=== PATIENT | female | born 1940 | race Caucasian/White ===

== ENCOUNTER → 2016-09-06 | Outpatient (CLI) | payer MEDICARE, BC ==
--- NOTE | 2016-09-06 10:51 | FL ---
EXAMINATION TYPE: FL barium swallow DATE OF EXAM: 09/06/2016 10:40 AM CLINICAL HISTORY: Dysphasia, solid foods getting stuck in proximal esophagus for 4 months. On Protoni x for Last 2 weeks without change in symptoms. TECHNIQUE: A double contrast esophagram is performed utilizing air and barium. A total of 30 second s of fluoroscopic time was utilized during procedure. COMPARISON: None FINDINGS: The esophagus shows satisfactory motility and emptying into the stomach when upright. There is some dysmotility when patient is supine. No evidence of hiatal hernia or stricture noted. No susp icious intraluminal mass is identified. No significant gastroesophageal reflux was seen during real t sophy performance of this study. IMPRESSION: Some mild dysmotility when supine otherwise unremarkable study.
== END ==
LOC: RADFLWHC 09:59
PROVIDERS: ATTEND Family Medicine
DX: K22.4 Dyskinesia of esophagus (principal); Z88.0 Allergy status to penicillin; Z88.8 Allergy status to other drugs, medicaments and biological substances
CPT/HCPCS: 74220

== ENCOUNTER → 2018-08-17 | Outpatient (CLI) | payer MEDICARE, BC ==
--- NOTE | 2018-08-17 17:12 | MR ---
EXAMINATION TYPE: MR cervical spine wo con DATE OF EXAM: 08/17/2018 COMPARISON: None HISTORY: Cervical Myelopathy, Neck and Rubens Shoulder Pain TECHNIQUE: Multiplanar, multisequence images of the cervical spine were acquired. C2-C3: No evidence for degenerative disc disease. No disc bulge/herniation or protrusion. No Canal stenosis. Foramina are patent bilaterally. C3-C4: No evidence for degenerative disc disease. No disc bulge/herniation or protrusion. No Canal stenosis. Foramina are patent bilaterally. C4-C5: Uncovertebral vertebral joint hypertrophy contributes to cause mild foraminal encroachment on the right. No significant central stenosis or evident disc herniation. C5-C6: Bilateral foraminal encroachment is present due to uncovertebral joint hypertrophy facet arthr opathy change. No significant central stenosis or evident disc herniation. C6-C7: No central spinal stenosis, no disc herniation or significant foraminal encroachment. C7-T1: No evidence for degenerative disc disease. No disc bulge/herniation or protrusion. No Canal stenosis. Foramina are patent bilaterally. Cervical segments are intact. There is normal alignment. Cervical spinal cord is of normal signal. Craniovertebral junction relationships are within normal limits. Cervical vertebral bodies show pre served height, there is mild spondylosis and endplate discogenic marrow signal change, loss of disc h eight signal greatest at C4-5 and C5-6. Multilevel facet arthropathy. IMPRESSION: Mild degenerative disc disease, no sizable disc herniation or significant central stenosis. Mild fora laila encroachment.
== END | disposition home or self-care (01) ==
LOC: RADMRIMAIN 13:39
PROVIDERS: ATTEND Family Medicine
DX: M50.321 Other cervical disc degeneration at C4-C5 level (principal)
CPT/HCPCS: 72141

== ENCOUNTER 2019-08-30 07:40 | Day surgery (SDC) | payer MEDICARE ==
[2019-08-28 17:24] VITALS: BMI 32.3
--- NOTE | 2019-08-29 13:28 | HP ---
HISTORY AND PHYSICAL Surgery is scheduled for 08/30/2019. Pat Fabian is a 79-year-old patient who is seen with progressive right shoulder pain. We discussed options for treatment. She elected to proceed with arthroscopy. Consent was obtained. PAST MEDICAL HISTORY: Her past medical history is hypertension, hyperlipidemia, hypothyroidism. PAST SURGICAL HISTORY: Cholecystectomy. DAILY MEDICATIONS: 1. Crestor. 2. Corgard. 3. Dyazide. 4. Prozac. 5. Synthroid. 6. Zetia. ALLERGIES: PENICILLIN. SOCIAL HISTORY: She denies current tobacco use. PHYSICAL EXAMINATION: Physical evaluation of the right shoulder: Flexion is 90 degrees, abduction is 70 degrees, external rotation is 40 degrees with pain and weakness. Tenderness along the anterior lateral acromion and rotator cuff insertion site. Impingement is positive 90. Drop-arm sign positive. Distal neurovascular exam is intact. Radiographs of the right shoulder revealed a type 2 anterior acromion, severe acromioclavicular joint osteoarthritis and cystic changes of the greater tuberosity. Right shoulder MRI revealed rotator cuff tendon tear, labral tear, acromioclavicular joint osteoarthritis and biceps tendinitis. IMPRESSION: 1. Right shoulder impingement with rotator cuff tear. 2. Right shoulder acromioclavicular joint osteoarthritis. 3. Right shoulder bicipital tendinitis. 4. Hyperlipidemia. 5. Hypertension. PLAN: Right shoulder arthroscopy with subacromial decompression, arthroscopic rotator cuff repair, Winifred procedure, biceps tenotomy and debridement. MMODL / IJN: [id number] /
[~2019-08-30 07:40] MED LIST: DEXAMETHASONE SOD PHOSPHATE 10 MG/ML 1 ML VIAL IV ONE; HYDROmorphone 0.5 MG/0.5 ML SYRINGE IVP PRN; LIDOCAINE 1% (10MG/ML) FOR IV START INTRADERMA PRN; MIDAZOLAM 2 MG/2 ML VIAL IV PRN; ONDANSETRON 4 MG/2 ML VIAL IVP ONE; fentaNYL (PF) 50 MCG/ML 2 ML AMP IVP PRN
[2019-08-30] MEDS: LACTATED RINGERS 1,000 ML IV SCH ×2 (08:19→09:31)
[2019-08-30] MEDS ORDERED: MIDAZOLAM 2 MG/2 ML VIAL IVP ONE (09:02)
[2019-08-30] MEDS ORDERED: fentaNYL (PF) 50 MCG/ML 2 ML AMP IVP ONE (09:03)
[2019-08-30] MEDS ORDERED: SUCCINYLCHOLINE CHLORIDE 100 MG/5 ML SYR IV ONE (09:27)
[2019-08-30] MEDS ORDERED: fentaNYL (PF) 50 MCG/ML 2 ML AMP ONE (09:27)
[2019-08-30] MEDS ORDERED: PROPOFOL 10 MG/ML 20 ML VIAL IV ONE (09:27)
[2019-08-30] MEDS ORDERED: LIDOCAINE 1% INJ 10MG/ML (20 ML MDV) ONE (09:27)
[2019-08-30] MEDS ORDERED: ROPIVACAINE 5 MG/ML 30 ML VIAL ONE (09:27)
[2019-08-30] MEDS ORDERED: SODIUM CHLORIDE 0.9% 100 ML with CLINDAMYCIN 600 MG IV ONE ×2 (09:31)
[2019-08-30] MEDS ORDERED: LACTATED RINGERS 1,000 ML IV ONE (10:55)
[2019-08-30 11:04] VITALS: TEMP 97
--- NOTE | 2019-08-30 11:09 | P.OP ---
Date of Procedure: 08/30/19 Preoperative Diagnosis: Right shoulder impingement Postoperative Diagnosis: 1. Right shoulder rotator cuff tear 2. Right shoulder impingement 3. Right shoulder acromioclavicular joint osteoarthritis 4. Right shoulder partial long head biceps tendon tear 5. Right shoulder superficial labral tear Procedure(s) Performed: 1. Right shoulder arthroscopic rotator cuff repair 2. Right shoulder arthroscopic subacromial decompression 3. Right shoulder arthroscopic Winifred procedure 4. Right shoulder arthroscopic biceps tenotomy 5. Right shoulder arthroscopic debridement labral tear Implants: 15.5 Arthrex swivel lock anchor Anesthesia: GETA, regional (Interscalene block) Surgeon: Leon Seay Front End Web Designer #1: Nnamdi Nagy Estimated Blood Loss (ml): 10 Pathology: none sent Condition: stable Disposition: PACU Indications for Procedure: 79-year-old patient seen with progressive right shoulder pain. After treatment options were discussed, she elected to proceed with arthroscopy. Operative Findings: See description of procedure Description of Procedure: Patient underwent an interscalene block by department of anesthesia. The patient was then taken to the operative suite. The patient underwent a general anesthetic by the department of anesthesia. The patient was placed into a lateral position and secured. There was appropriate padding of the bony prominence. Right shoulder was then prepped and draped in normal sterile orthopedic fashion. We placed the extremity in 10 pounds of longitudinal traction. A posterior incision was now made for a posterior working portal site. The trocar and cannula were inserted into the glenohumeral joint. Arthroscopy was initiated. Spinal needle was now inserted anteriorly, to ascertain the anterior working portal site. An incision was now made in that area, a trocar was inserted followed by a probe. There was superficial tearing along the anterior superior labrum. There were grade 3 chondromalacia changes diffusely about the glenohumeral joint. There was some partial tearing and hyperemia long head biceps tendon. I performed an arthroscopic biceps tenotomy. I debrided the superficial labral tears getting down to stable labral tissue. Residual labrum was found to be stable. Instruments now removed from glenohumeral joint. Utilizing the posterior working portal site, the trocar and cannula were inserted into the subacromial space. Arthroscopy initiated. I made an incision 2 fingerbreadths lateral to the acromion. I introduced my trocar followed by my ArthroCare ablator. I now began ablating thick subacromial bursal tissue, which exposed the undersurface of the anterior acromion. There was diminished subacromial space. There was a very prominent anterior acromion. A motorized bur was introduced and a subacromial decompression was performed. I also excised some osteophytes off the inferior aspect of the distal clavicle. The AC joint was visualized and noted to be fairly arthritic. The motorized bur was introduced in the anterior portal site and a Winifred procedure was performed without difficulty, decompressing the AC joint nicely. I turned my attention to the rotator cuff. There was a 11.5 cm rotator cuff tear. I debrided the margins getting down to stable tendon tissue. I abraded the footprint with a motorized bur. With the assistance of vernon TURNER and now passed her to mattress sutures through good bites of rotator cuff tendon. I now punched a hole in the area of the footprint for insertion of an anchor. I now passed all 4 limbs of suture through a Arthrex 5.5 swivel lock anchor. The eyelet was now introduced into the prepunched hole. Zachery TURNER tensioned all the sutures and applied the anchor was good fixation noted. All residual suture limbs were now clipped. We had good compression of the tendon along the entire footprint. I injected 1 mL Renyte intra-articular. Instruments now removed from the portal sites. All portal sites were approximated with nylon suture. Sterile dressings were applied followed by a shoulder sling. Nnamdi TURNER assisted in this complex case. The patient was awakened, transferred to a bed, and taken to recovery in stable condition.
[2019-08-30] MEDS ORDERED: METOPROLOL TARTRATE 5 MG/5 ML VIAL IVP ONE (12:13)
--- NOTE | 2019-08-30 12:23 | P.ANPRN ---
Procedure Note - Anesthesia - Nerve Block Performed Left Axillary Single Time Out Performed: Yes Date of Procedure: 08/30/19 Procedure Start Time: 09:01 Procedure Stop Time: 09:10 Location of Patient: PreOp Indication: Acute Post-Operative Pain, Requested by Surgeon Specifically requested for management of pain by DrJhonny: Leon Seay Sedation Type: Sedate with meaningful contact maintained Preparation: Sterile Prep Position: Supine Catheter: None Needle Types: Pajunk Needle Gauge: 21 Ultrasound used to visualize needle placement: Yes Ultrasound used to observe medication spread: Yes Injectate: 0.5% Ropivacaine (see comment for volume) (20 cc) Blood Aspirated: No Pain Paresthesia on Injection Noted: No Resistance on Injection: Normal Image Stored and Saved: Yes Events: Uneventful and Well Tolerated
[2019-08-30 12:33] VITALS: BP 167/79; PULSE 70; RESP 18
== END 2019-08-30 12:48 | disposition home health service (06) ==
LOC: OR 07:40
PROVIDERS: ATTEND Orthopaedic Surgery
DX: M75.101 Unspecified rotator cuff tear or rupture of right shoulder, not specified as traumatic (principal); M19.011 Primary osteoarthritis, right shoulder; M94.211 Chondromalacia, right shoulder; M75.21 Bicipital tendinitis, right shoulder; S43.431A Superior glenoid labrum lesion of right shoulder, initial encounter; I10 Essential (primary) hypertension; E78.5 Hyperlipidemia, unspecified; E03.9 Hypothyroidism, unspecified; F39 Unspecified mood [affective] disorder; Z88.0 Allergy status to penicillin; Z87.891 Personal history of nicotine dependence; Z79.890 Hormone replacement therapy; Z79.899 Other long term (current) drug therapy; Z90.49 Acquired absence of other specified parts of digestive tract
CPT/HCPCS: 64415; 76942; 29824; 29826; 29827; C1713; Q4212; J2250; J1100; J2405; J2001; J3010; J2795; J0330; J2704

== ENCOUNTER → 2021-02-02 | Outpatient (CLI) | payer MEDICARE ==
--- NOTE | 2021-02-03 04:53 | MR ---
EXAMINATION TYPE: MR lumbar spine wo con DATE OF EXAM: 02/02/2021 COMPARISON: 04/04/2012 HISTORY: Sever low center back pain for 1 year. Multiplanar multiecho imaging of the lumbar spine without contrast. Fairly normal alignment. There is a few millimeter anterior subluxation of L2 in relation L3. I see n o spondylolysis. There is degenerative disc space narrowing throughout the lumbar spine and more annette re at L3-4 and L4-5. There is some mild loss of height of L5 vertebral body. The sacroiliac joints are intact. There is multilevel lumbar hypertrophic facet arthropathy. There is no significant spinal stenosis. There is no lumbar paraspinal mass. IMPRESSION: Multilevel spondylotic changes. There is slight loss of height of L5 without change. No focal bone de struction. No significant spinal stenosis. Lumbar spine not significantly different than old exam. Stable degene rative first-degree L2-3 spondylolisthesis. Mild lateral recess stenosis at L2-3 due to the facet art hropathy and subluxation.
== END | disposition home or self-care (01) ==
LOC: RADMRIMAIN 16:56
PROVIDERS: ATTEND Family Medicine
DX: M48.062 Spinal stenosis, lumbar region with neurogenic claudication (principal); M47.896 Other spondylosis, lumbar region; M43.16 Spondylolisthesis, lumbar region; M46.96 Unspecified inflammatory spondylopathy, lumbar region
CPT/HCPCS: 72148

== ENCOUNTER → 2021-07-20 | Outpatient (CLI) | payer MEDICARE ==
[2021-07-20 13:47] VITALS: BP 140/61; PULSE 80; RESP 18; TEMP 97.9
--- NOTE | 2021-07-20 14:02 | P.CON ---
Consult Note - . Consult date: 07/20/21 Assessment/Plan:: HISTORY OF PRESENT ILLNESS: 81 year old female with at side, as a referral from Dr Tyler presents today for lumbar pain s/p lumbar degenerative disc disease, spondylolisthesis and facet arthropathy for a LESI. States she underwent a LESI, level unknown, in May 2021 but her physician moved to a far away county and she would like to continue the treatment plan with a local clinic. She experienced 70% relief with the procedure. Her lower back pain feels dull and achy left and right of midline and radiates as a sharp shooting character down both extremities. It is 3 out of 10 in intensity but escalates at times to 8 out of 10. It is provoked with standing and walking. It is alleviated with Tylenol and Lyrica, topical Biofreeze gel, injections, ice or heat stretching, repositioning and rest. PMH: HTN, Hyperlipidemia, Hypothryoidism, Depression PSH: Right shoulder impingement injection SH: . Denies tobacco or ETOH abuse. FH: Non contributory All: PCN, Sulfa Meds: See list REVIEW OF ORGAN SYSTEMS: CONSTITUTIONAL: No fevers or chills. No recent weight loss. HEENT: No visual acuity loss, eye pain, difficulties with hearing. No nosebleeds. No difficulty swallowing. RESPIRATORY: Denies any troubles with breathing or dyspnea on exertion. CARDIOVASCULAR: Denies any chest pain, palpitations, or recent heart attacks. GASTROINTESTINAL: Denies fatty food intolerance. Has change in bowel habits and gas bloat. GENITOURINARY: Denies any blood in urine. Has increased urinary frequency. NEUROLOGICAL: + numbness and tingling along the distal extremities. No seizure disorders or headaches. MUSCULOSKELETAL: + back pain SKIN: No skin cancer. No rash. PSYCHIATRIC: Denies current depression or suicidal thoughts. ENDOCRINE: Denies current thyroid disorders. Denies any blood sugar glucose intolerance. HEME/LYMPHATIC: Denies any lumps and bumps around the neck. History of deep venous thrombosis. ALLERGY/IMMUNOLOGY: No immunoglobulin therapy. No immune deficiencies. BREAST: Denies current breast lumps, pain or nipple discharge. Physical Examinations : Constitutional : Cooperative , not in acute distress . HEENT: Neck supple. No Lymphadenopathy. Normal thyroid size . Eyes no ptosis , no icterus, no photo phobia . Hearing intact. Normal oropharynx. No Thrush. Respiratory : Chest clear to auscultations bilaterally. No wheezing. No rhonchi. Cardiovascular : Regular rate and rhythm , S1 / S2. No S3 . No S4. Gastrointestinal : Abdomen soft. No tenderness. Bowel sounds x 4. No organomegaly . Genitourinary : Deferred. Neurologic : Cranial nerve II to XII intact. No focal neurological deficits. Psychiatric : alert & oriented x 3. Matching mood & appropriate affect. Judgment & insight intact. Lymphatic No Lymphadenopathy. Musculoskeletal : Cervical Spine Motor strength in the deltoid and biceps: Normal right side. Normal Left side Motor strength biceps and the wrist extensors: Normal right side . Normal left side Motor strength in the triceps muscle: Normal right side. Normal left side Deep tendon reflexes: Normal at the biceps. Normal at Brachioradialis. Normal at triceps Cervical facet loading test: positive bilaterally Spurling test: positive bilaterally Neck distraction test: positive bilaterally Hollis sign: positive bilaterally Lumbar spine Motor strength lower extremities ,thigh and legs 5/5 Right side , 5/5 Left side Deep tendon reflexes : Normal Knee Jerk. Normal Ankle Jerk Vertebral body tenderness to palpation over L3 & L4 Lumbar facet Loading Test: positive Right / positive Left over L3-L4 Range of motion of the lumbar spine Flexion 45 degrees, extension 10 degrees Straight Leg Raise test: Left/ Right positive at degree Srinivasan test: positive right / positive left. Severe tenderness over the Sacroiliac joint on the Right / Left sides Gaenslen test: positive bilaterally Seated flexion test: positive bilaterally. IMAGING MRI Lumbar Spine 02/03/21 : L2 anterior subluxation, spondylolisthesis, L3-L4 & L4-L5 degenerative disc disease, multilevel spondylosis and multilevel facet arthropathy Assessment/ Plan : Recommendation of LESI L3 to L4 Risk, benefits of the procedure discussed and patient verbalized understanding Denies aspirin and anticoagulant use May need an additional LESI to reach sufficient pain relief I have spent greater than 50 minutes on patient care today. Dr Gatica was available by phone for the evaluation of this patient. The time was used to review the medical records including relevant urine studies and Prescription history (MAPs), review of the available imaging, evaluation and examination of the patient, coordination of care with the medical staff and if applicable referring physicians, as well as creation of the medical record PQRS Measure Charge Sheet Mode of Arrival: Ambulatory - Pain Location Lower Back Non-Pharmacological Interventions: Chiropractic Treatment, Inactivity Pharmacological Interventions: Epidural, Medication, PRN Medication, Topical Medication PQRS Narrative: Smoking Status Former smoker Blood Pressure 140/61 Pain Intensity [Lower Back] 3 Pain Intensity [Bilateral Leg] 6 Scale Used Numeric (1 - 10) Hx Alcohol Use (MH) Yes Home Medications: Ambulatory Orders Ezetimibe [Zetia] 10 mg PO MOTUWETHFR 08/28/19 FLUoxetine HCL [PROzac] 20 mg PO DAILY 08/28/19 LORazepam [Ativan] 1 mg PO BID PRN 08/28/19 Levothyroxine Sodium [Synthroid] 75 mcg PO DAILY 08/28/19 Nadolol [Corgard] 40 mg PO DAILY 08/28/19 Rosuvastatin [Crestor] 10 mg PO MOTUWETHFR 08/28/19 Cyanocobalamin (Vitamin B-12) [Vitamin B12] 5,000 mcg PO DAILY 07/14/21 Multivitamins, Thera [Multivitamin (formulary)] 1 tab PO DAILY 07/14/21
== END | disposition home or self-care (01) ==
LOC: PNWHC3 12:51
PROVIDERS: ATTEND Physician Assistant Medical
DX: M51.36 Other intervertebral disc degeneration, lumbar region (principal); M54.16 Radiculopathy, lumbar region
CPT/HCPCS: 99211

== ENCOUNTER 2021-08-11 07:20 | Day surgery (SDC) | payer MEDICARE ==
[2021-08-10 12:21] VITALS: BMI 35.5
[~2021-08-11 07:20] MED LIST changes: -DEXAMETHASONE SOD PHOSPHATE 10 MG/ML 1 ML VIAL IV ONE; -HYDROmorphone 0.5 MG/0.5 ML SYRINGE IVP PRN; +LACTATED RINGERS 1,000 ML IV SCH; -LIDOCAINE 1% (10MG/ML) FOR IV START INTRADERMA PRN; -MIDAZOLAM 2 MG/2 ML VIAL IV PRN; -ONDANSETRON 4 MG/2 ML VIAL IVP ONE; -fentaNYL (PF) 50 MCG/ML 2 ML AMP IVP PRN
[2021-08-11 07:54] VITALS: TEMP 98.3
[2021-08-11] MEDS ORDERED: IOPAMIDOL M200 10 ML VIAL ONE (08:10)
[2021-08-11] MEDS ORDERED: fentaNYL (PF) 50 MCG/ML 2 ML AMP ONE (08:10)
[2021-08-11] MEDS ORDERED: MIDAZOLAM 2 MG/2 ML VIAL ONE (08:10)
[2021-08-11] MEDS ORDERED: methylPREDNISolone ACETATE 40 MG/ML 1 ML VIAL ONE (08:10)
--- NOTE | 2021-08-11 08:21 | P.PCN ---
Date of Procedure: 08/11/21 Procedure(s) Performed: PREOPERATIVE DIAGNOSIS: 1- Lumbar Degenerative Disc Diseases 2-Lumbar spondylosis with Facet arthropathy without myelopathy POSTOPERATIVE DIAGNOSIS: Same as preop diagnosis. PROCEDURE 1. Lumbar epidural steroid injection under fluoroscopic guidance at the L3-4 level. (Fluoroscopy imaging was available in radiology department) 2. Lumbar epidurogram. ANESTHESIA: Local with 1% lidocaine 3 ml and , moderate sedation with intravenous Versed 1 mg ,and fentanyle 50 Mcg EBL: Minimal PROCEDURE INDICATION: The patient with low back pain and radiculitis symptoms unresponsive to conservative treatment. Fluoroscopy was used to optimize visualization of the needle placement and to maximize safety. PROCEDURE DESCRIPTION / TECHNIQUE: The patient was seen and identified in the preoperative area. Risks, benefits, complications including but not limited to infections ,bleeding ,allergic reaction to the medications ,nerve damage and not complete pain releife , and alternatives were discussed with the patient. The patient agreed to proceed with the procedure and signed the consent. IV was started, and vital signs were stable. Patient was taken to the OR and time out was completed. The patient was placed in the prone position on procedure table and a pillow was placed under the abdomen to reduce lumbar lordosis. The lumbosacral area was prepped and draped in the usual sterile fashion.ere closely monitored during the procedure. Cons cious sedation was used during the procedure to decrease patients anxiety. Vital signs was monitered during the entire procedure. Using anterior-posterior fluoroscopy, the L3-4 interlaminar space was identified and the skin over this site was marked and then infiltrated with 1% lidocaine subcutaneously. Subsequently, a 20-gauge Tuohy epidural needle was inserted and advanced toward the epidural space using the ``Loss of resistance technique and guided by AP and lateral fluoroscopy. The correct needle position in the epidural space was verified with the injection of 2 mL of the water soluble contrast dye Isovue 200 contrast and observing an excellent epidurogram with the epidural spread of the dye, after negative aspiration for blood and CSF and in the absence of paresthesias. Again after negative aspiration, a 6 ml mixture containing 40 mg of Depo-medrol , and 2 ml of preservative free Normal Saline, and 2 ml of preservative free lidocaine 1% solution was injected and a washout o f epidurogram was seen. Needle was withdrawn intact, skin was cleansed, and bandages were applied. COMPLICATIONS: None DISPOSITION / PLANS: The patient was placed in a supine position and transferred to the recovery area in a stable condition for observation. There was no evidence of lower extremity motor or sensory deficit after the procedure. Patient was discharged from the recovery room after meeting discharge criteria. Home discharge instructions were given to the patient by the staff. The patient was reexamined prior to discharge. The patient will schedule a follow up in the clinic in 2-4 weeks.
[2021-08-11] MEDS ORDERED: IV FLUID CONTINUATION 1,000 ML IV ONE (08:25)
[2021-08-11 08:29] VITALS: RESP 16
[2021-08-11 08:41] VITALS: BP 120/59; PULSE 63
--- NOTE | 2021-08-11 08:47 | FL ---
EXAMINATION TYPE: FL guided pain mgmt statistic DATE OF EXAM: 08/11/2021 CLINICAL HISTORY: LESI TECHNIQUE: Fluoroscopy. COMPARISON: MRI dated 02/02/2021 FINDINGS: Fluoroscopic guidance was provided during procedure performed by Dr. Tobar. A total of 7 seconds of fluoroscopic time was utilized during the procedure and 1 spot images was acquired. IMPRESSION: As Above.
== END 2021-08-11 09:04 | disposition home or self-care (01) ==
LOC: ORPAIN 07:20
PROVIDERS: ATTEND Specialist
DX: M47.26 Other spondylosis with radiculopathy, lumbar region (principal); M51.16 Intervertebral disc disorders with radiculopathy, lumbar region; Z88.0 Allergy status to penicillin; Z88.2 Allergy status to sulfonamides
CPT/HCPCS: 62323; J2250; J1030; J3010; Q9966

== ENCOUNTER → 2021-08-27 | Outpatient (CLI) | payer MEDICARE ==
--- NOTE | 2021-08-27 12:19 | P.PN ---
Subjective Progress Note Date: 08/27/21 Principal diagnosis: A 81 yr old female with at side with a history of severe and chronic low back pain secondary to lumbar degenerative disc diseases and lumbar spondylosis with facet arthropathy presents today for evaluation status post LESI L3-L4 #1. Patient states he expressively 5% pain relief for 4 days but the pain relief quickly reduced to 25% for one week and now she is at 0% pain relief. Pain is currently at 4 out of 10 in intensity, constant, achy throughout the lumbar spine with occasional sharp pain radiating down bilateral lower extremities. Pain is provoked by sitting for periods of 1 hour or more. Pain is alleviated with medications, topical Biofreeze gel, heat, injections, physical therapy 6 years ago which was ineffective, use of a body pillow, sitting in a reclined position and rest. Interventional pain procedures completed include LESI L3-L4 #1 Patient is currently on Tylenol OTC Patient denies any side effects of the medication(s), denies excessive drowsiness or sleepiness, denies suicidal ideation and reports that the current pain medication is helping to control the pain and improve activities of daily living. Patient denies any motor or sensory deficits. Patient denies any fever or night sweats, denies any change in the bowel movements or urination. Physical Examination: -Constitutional: Cooperative. Not in acute distress . -HEENT: Neck is supple. No lymphadenopathy. No thyromegaly. Normal thyroid size. Eyes: No ptosis , no icterus, no photophobia. ENT: No auditory deficits. Normal oropharynx. No Thrush. - Respiratory: Chest clear to auscultations bilaterally. No wheezing. No rhonchi. - Cardiovascular: Regular rate and rhythm. S1 / S2 , no S3 , no S4. - Gastrointestinal: Abdomen soft no tenderness. Bowel sounds positive in all four quadrants. No organomegaly. - Genitourinary: Deferred. - Neurologic: Cranial nerve II to XII intact. No focal neurological deficits. - Psychatric: Alert & oriented x 3. Matching mood & appropriate affect. Judgment and insight intact. - Lymphatic: No Lymphadenopathy. - Musculoskeletal: Cervical spine: Muscle bulk/ tone/ strength in the bilateral upper extremities normal. Facet loading test cervical area positive. Lumbar spine: Motor bulk/ tone/ strength lower extremities , thigh and legs : 5/5 Deep tendon reflexes : Normal Knee Jerk. Normal Ankle Jerk . Vertebral body tenderness to palpation over L2, L3, L4 Lumbar Facet Loading Test positive Straight Leg Raise: positive at 30 degrees right side/ left side Gaenslen's Test positive Sacral spine : Severe tenderness over the Sacroiliac joint: right side / left side Range of motion: Flexion of the lumbar spine <60 degrees Range of motion: Extension of the lumbar spine <20 degrees Gaenslen's Test positive Srinivasan test: positive right side / left side Assessment and plan: Chronic low back pain secondary to lumbar degenerative disc disease , lumbar spondylosis with facet arthropathy without myelopathy Recommendation of LESI L2-L3. May need a series of injections, up to 3 within a six-month period, to obtain optimal pain relief. Risks, benefits of procedure discussed and patient verbalized understanding. Denies anticoagulant use. Denies medical history of diabetes mellitus. All patient questions answered MAPS reviewed and it was appropriate. I have spent 31 minutes on patient care today. Dr Gatica was available by phone for the evaluation of this patient. The time was used to review the [facility] records including relevant urine studies and Prescription history (MAPs), review of the available imaging, evaluation and examination of the patient, coordination of care with the medical staff and if applicable referring physicians, as well as creation of the medical record PQRS Measure Charge Sheet PQRS Narrative: Smoking Status Former smoker Hx Alcohol Use (MH) Yes Home Medications: Ambulatory Orders Ezetimibe [Zetia] 10 mg PO DAILY 08/28/19 FLUoxetine HCL [PROzac] 20 mg PO DAILY 08/28/19 LORazepam [Ativan] 1 mg PO BID PRN 08/28/19 Levothyroxine Sodium [Synthroid] 75 mcg PO DAILY 08/28/19 Nadolol [Corgard] 40 mg PO DAILY 08/28/19 Rosuvastatin [Crestor] 10 mg PO DAILY 08/28/19 Cyanocobalamin (Vitamin B-12) [Vitamin B12] 5,000 mcg PO DAILY 07/14/21 Multivitamins, Thera [Multivitamin (formulary)] 1 tab PO DAILY 07/14/21
[2021-08-27 16:22] VITALS: BP 128/86; PULSE 63; RESP 18
== END | disposition home or self-care (01) ==
LOC: PNWHC3 10:48
PROVIDERS: ATTEND Physician Assistant Medical
DX: M51.36 Other intervertebral disc degeneration, lumbar region (principal); M46.96 Unspecified inflammatory spondylopathy, lumbar region; M47.896 Other spondylosis, lumbar region
CPT/HCPCS: 99211

== ENCOUNTER → 2021-12-16 | Outpatient (CLI) | payer MEDICARE ==
[2021-12-16 14:14] VITALS: BP 150/76; PULSE 66; RESP 18; TEMP 98.5
--- NOTE | 2021-12-16 14:17 | P.PAINPG ---
PQRS Measure Charge Sheet Comment: A 81 yr old female with a history of severe and chronic low back pain secondary to lumbar degenerative disc diseases and lumbar spondylosis with facet arthropathy presents today for evaluation s/p LESI L2-L3. She received 40% pain relief s/p procedure. Pain level is 6/10, localized to the mid lower aspect of lumbar spine, constant dull/achy pain. Pain is provoked by walking/standing for periods of 15 min or more. Pain is alleviated with chiropractic treatments monthly x 15 yrs, heat, ice, medications (Tylenol, Advil), topicals, repositioning, reclining and rest. Interventional pain procedures completed include LESI L2-L3, L3-L4 Patient is currently on Tylenol, Advil. Patient denies any side effects of the medication(s), denies excessive drowsiness or sleepiness, denies suicidal ideation and reports that the current pain medication is helping to control the pain and improve activities of daily living. Patient denies any motor or sensory deficits. Patient denies any fever or night sweats, denies any change in the bowel movements or urination. Physical Examination: -Constitutional: Cooperative. Not in acute distress . - Neurologic: Cranial nerve II to XII intact. No focal neurological deficits. - Psychatric: Alert & oriented x 3. Matching mood & appropriate affect. Judgment and insight intact. - Musculoskeletal: Cervical spine: Muscle bulk/ tone/ strength in the bilateral upper extremities normal Vertebral body tenderness to palpation over Spurling test positive Distraction test positive Facet loading test positive Thoracic spine Muscle bulk / tone/ strength in the bilateral paraspinal muscles normal Vertebral body tender to palpation over Facet loading test positive Lumbar spine: Motor bulk/ tone/ strength lower extremities , thigh and legs : 5/5 Deep tendon reflexes : Normal Knee Jerk. Normal Ankle Jerk . Vertebral body tenderness to palpation over Lumbar Facet Loading Test positive BL L4-L5, L5-S1 with jump reflex Straight Leg Raise: positive at 30 degrees right side/ left side Gaenslen's Test positive Sacral spine : Severe tenderness over the Sacroiliac joint: right side / left side Range of motion: Flexion of the lumbar spine <60 degrees Range of motion: Extension of the lumbar spine <20 degrees Gaenslen's Test positive William's Test positive Srinivasan test: positive right side / left side Thigh Thrust Test Sacral Thrust Test Assessment and plan: Chronic low back pain secondary to lumbar degenerative disc disease , lumbar spondylosis with facet arthropathy without myelopathy Recommendation of BL MBB L3-L5. May need a series of injections, up until RFA, for optimal pain relief. Risks, benefits of procedure discussed and pt verbalized understanding. Denies anticoagulant use or medical history of diabetes. All patient questions answered MAPS reviewed and it was appropriate. I have spent less than 30 minutes on patient care today. Dr Gatica was available by phone for the evaluation of this patient. The time was used to review the medical records including relevant urine studies and Prescription history (MAPs), review of the available imaging, evaluation and examination of the patient, coordination of care with the medical staff and if applicable referring physicians, as well as creation of the medical record - Pain Location Bilateral Lower Back Non-Pharmacological Interventions: Chiropractic Treatment, Elevation, Heat, Ice, Inactivity, Position/Reposition Pharmacological Interventions: Epidural, Scheduled Medication, Topical Medication PQRS Narrative: Smoking Status Former smoker Hx Alcohol Use (MH) Yes Home Medications: Ambulatory Orders Ezetimibe [Zetia] 10 mg PO DAILY 08/28/19 FLUoxetine HCL [PROzac] 20 mg PO DAILY 08/28/19 LORazepam [Ativan] 1 mg PO BID PRN 08/28/19 Levothyroxine Sodium [Synthroid] 75 mcg PO DAILY 08/28/19 Rosuvastatin [Crestor] 10 mg PO DAILY 08/28/19 nadoloL [Corgard] 40 mg PO DAILY 08/28/19 Cyanocobalamin (Vitamin B-12) [Vitamin B12] 5,000 mcg PO DAILY 07/14/21 Multivitamins, Thera [Multivitamin (formulary)] 1 tab PO DAILY 07/14/21 Pregabalin [Lyrica] 50 mg PO DAILY 09/28/21 Vitamin B Complex 1 each PO DAILY 09/28/21 Controlled Substance Measures - Controlled Substance Measures Is patient prescribed a controlled substance at discharge?: No
== END | disposition home or self-care (01) ==
LOC: PNWHC3 13:37
PROVIDERS: ATTEND Specialist
DX: M47.896 Other spondylosis, lumbar region (principal); M51.36 Other intervertebral disc degeneration, lumbar region
CPT/HCPCS: 99211

== ENCOUNTER 2022-01-01 08:39 | Day surgery (SDC) | payer MEDICARE ==
[2022-01-01 09:07] VITALS: TEMP 98.1
[2022-01-01] MEDS ORDERED: fentaNYL (PF) 50 MCG/ML 2 ML AMP ONE (09:35)
[2022-01-01] MEDS ORDERED: MIDAZOLAM 2 MG/2 ML VIAL ONE (09:35)
[2022-01-01] MEDS ORDERED: TRIAMCINOLONE ACETONIDE 40 MG/ML 1 ML VIAL ONE (09:35)
[2022-01-01] MEDS ORDERED: ROPIVACAINE 5MG/ML 20ML VIAL ONE (09:35)
--- NOTE | 2022-01-01 09:54 | P.PCN ---
Date of Procedure: 01/01/22 Description of Procedure: Pre- and Post-operative Diagnosis: Lumbar facet arthropathy, and lumbar spondylosis without myelopathy. Procedure: #1 Diagnostic Medial Branch Block at bilateral Lumbar 4/5 and #1 diagnostic dorsal ramus block at Lumbar 5/ sacral ala levels (total 4 levels) Surgeon: Bulmaro Rucker Anesthesia: Local: 1% Lidocaine, IV sedation : Versed and fentanyl. Complications: None EBL: None Specimen removed: None Fluoroscopic image: Saved to patient electronic medical records. Indications for Procedure: The patient is well known to pain clinic for his chronic low back pain management. The lumbar facet loading test was positive with a clinical diagnosis of lumbar facet arthropathy. Failed with conservative therapy. Came here for interventional help for better pain relief. Procedure and Findings: The patient was seen and examined. The written informed consent was obtained after explaining the risks, benefits and alternatives of the procedure to the patient. The patient was brought to the procedure room and was placed in the prone position on the operating table table. A pillow was placed under the abdomen to reduce lumbar lordosis. Standard anesthesia monitoring was done through out the procedure. The skin preparation was done with ChloraPrep, and draping was done in usual sterile fashion. Sterile technique was observed throughout the procedure. Under fluoroscopic guidance, right the Lumbar 4, 5 and Sacral ala levels were identified in the AP view. For lumbar L4, and L5 levels the targeting area of superior articular process, and close to the most medial and superior aspect of transverse process identified, marked. 1ml of 1% Lidocaine was used with a 25 gauge needle to achieve adequate local anesthesia of the skin and subcutaneous tissue at each level. A 22 gauge 3.5 inch spinal needle was placed and advanced targeting area which was close to the most medial and superior aspect of the transverse process. For Lumbar 5/ sacral ala level, fluoroscope was used in the anteroposterior view, and the needle tip was placed at the superior and most medial part of sacral ala close to the superior articular process. A bony contact was obtained and needle tip position was confirmed at anteroposterior view. No paresthesia was noted. A negative aspiration was confirmed. 1 ml solution per level was injected, the block solution containing 5 ml of 0.5% ropivacaine preservative-free solution mixed with 40 MG of Kenalog. The needles were removed intact. Entire procedure repeated on the left side. Lumbar area was cleaned and bandages were applied. Disposition : The patient tolerated the procedure very well. The patient was transferred to the recovery room and remained stable until discharged home. The patient was given detailed discharge instructions for infection, bleeding, and increased pain at the injection site, and was advised to seek immediate medical attention should significant side effects develop. The patient will be scheduled with Pain Clinic within 4 weeks for repeat procedure if it's helpful.
--- NOTE | 2022-01-01 09:59 | FL ---
Intraoperative/procedural fluoroscopic services were provided. Total fluoroscopy time is 8 seconds wi th a total of 2 submitted images to PACS. Please see the operative/procedural note for further detail s.
[2022-01-01] MEDS ORDERED: IV FLUID CONTINUATION 1,000 ML IV ONE (10:15)
[2022-01-01 10:18] VITALS: BP 148/57; RESP 16
[2022-01-01 10:21] VITALS: PULSE 61
== END 2022-01-01 10:58 | disposition home or self-care (01) ==
LOC: ORPAIN 08:39
DX: G89.29 Other chronic pain (principal); M47.816 Spondylosis without myelopathy or radiculopathy, lumbar region; I10 Essential (primary) hypertension; M15.9 Polyosteoarthritis, unspecified; Z88.0 Allergy status to penicillin; Z88.2 Allergy status to sulfonamides; I25.10 Atherosclerotic heart disease of native coronary artery without angina pectoris; E78.5 Hyperlipidemia, unspecified; E07.9 Disorder of thyroid, unspecified; Z97.2 Presence of dental prosthetic device (complete) (partial); Z86.73 Personal history of transient ischemic attack (TIA), and cerebral infarction without residual deficits; Z79.890 Hormone replacement therapy; Z79.899 Other long term (current) drug therapy
CPT/HCPCS: 64493; 64494; J2250; J3301; J3010; J2795

== ENCOUNTER 2022-03-12 07:03 | Day surgery (SDC) | payer MEDICARE ==
[~2022-03-12 07:03] MED LIST changes: +LIDOCAINE 1% (10MG/ML) FOR IV START INTRADERMA PRN
[2022-03-12 07:41] VITALS: TEMP 97.4
[2022-03-12] MEDS ORDERED: LIDOCAINE 1% (10MG/ML) FOR IV START INTRADERMA ONE (07:48)
[2022-03-12] MEDS ORDERED: fentaNYL (PF) 50 MCG/ML 2 ML AMP ONE (07:55)
[2022-03-12] MEDS ORDERED: methylPREDNISolone ACETATE 40 MG/ML 1 ML VIAL ONE (07:55)
[2022-03-12] MEDS ORDERED: ROPIVACAINE 5 MG/ML 20 ML AMPULE ONE (07:55)
[2022-03-12] MEDS ORDERED: MIDAZOLAM 2 MG/2 ML VIAL ONE (07:55)
--- NOTE | 2022-03-12 08:12 | P.PCN ---
Date of Procedure: 03/12/22 Procedure(s) Performed: PREOPERATIVE DIAGNOSIS : 1- Lumbar spondylosis with Facet Arthropathy without myelopathy . 2- Lumber degenerative disc disease POSTOPERATIVE DIAGNOSIS: 1- Lumbar spondylosis with Facet Arthropathy without myelopathy . 2- Lumber degenerative disc disease PROCEDURE: Diagnostic bilateral L3 , L4 , and L5 medial branch block under fluoroscopy guidance(fluoroscopy images available in the radiology Department ) ( To target the facet joint between bilateral L4-5 , and L5-S1 )# 2nd ANESTHESIA:, Monitored anesthesia care as per anesthesia department. EBL: Minimal COMPLICATION: None PROCEDURE INDICATION: Chronic low back pain secondary to Facet arthropathy unresponsive to conservative treatment. PROCEDURE DESCRIPTION: the patient was seen and identified in the preop holding area , risks and benefits and possible complications of the procedure and alternative were discussed with the patient, and the patient agreed to proceed with the procedure and signed the consent and vital signs monitored during the procedure and fluoroscopy was used to maximize the benefit and accuracy of the needle placement, and sedation was given to decrease patient anxiety, patient was taken to the procedure room and placed in prone position vital signs monitored in the back prepped with chlorhexidine X3 then under strict sterile technique using a right oblique fluoroscopy ,the junction of the transverse process and the superior articulating process of the right L3 , L4 , and L5 vertebra which corresponding to the fluoroscopy image of the eye of the Frederick dog on the block side for the medial branches and subsequently , after local infiltration of skin and subcu tissuies with Ropivacaine 0.5 % , one mL at each level ,then 22-gauge 3-1/2 inch Quincke-type needles , 3 needle was used , each one of them placed at the junction of the base of the transverse process and the superior articular process at the appropriate level, and the needle was advanced until the periosteum contacted, needle placement confirmed with AP oblique and lateral view and after appropriate needle placement confirmed, and after negative aspiration for heme and CSF and there was no paresthesia 1-1/2 mL of Ropivacaine 0.5% mixed with 20 mg Depo-Medrol , then half mL injected at each level after negative aspiration the needle subsequently removed and the same procedure repeated for the left side at left side at L3 , L4 and L5 levels. At the end of the procedure and the needles removed and a bandage applied after the skin was cleaned the cleaning solution patient taken to recovery room in stable condition and monitors in the recovery room for 20-30 minutes and discharged home in stable condition after discharge criteria met and patient will follow up with the pain clinic in 2-4 weeks
[2022-03-12] MEDS ORDERED: IV FLUID CONTINUATION 1,000 ML IV ONE (08:15)
[2022-03-12 08:23] VITALS: RESP 16
[2022-03-12 08:38] VITALS: BP 122/56; PULSE 59
--- NOTE | 2022-03-12 08:43 | FL ---
Intraoperative/procedural fluoroscopic services were provided for bilateral lumbar facet block. Total fluoroscopy time is 31 seconds with a total of 4 submitted images to PACS. Please see the operative note for further details.
== END 2022-03-12 08:50 | disposition home or self-care (01) ==
LOC: ORPAIN 07:03
PROVIDERS: ATTEND Specialist
DX: M51.36 Other intervertebral disc degeneration, lumbar region (principal); M47.816 Spondylosis without myelopathy or radiculopathy, lumbar region; Z88.0 Allergy status to penicillin; Z88.1 Allergy status to other antibiotic agents; G89.29 Other chronic pain; I10 Essential (primary) hypertension; E78.5 Hyperlipidemia, unspecified; E07.9 Disorder of thyroid, unspecified; F41.9 Anxiety disorder, unspecified; Z79.890 Hormone replacement therapy; Z79.899 Other long term (current) drug therapy; Z79.02 Long term (current) use of antithrombotics/antiplatelets
CPT/HCPCS: 64494 ×2; 64493; J2250; J1030; J3010; J2795

== ENCOUNTER 2022-07-02 11:03 | Day surgery (SDC) | payer MEDICARE ==
[2022-07-02] MEDS ORDERED: LIDOCAINE 1% (10MG/ML) FOR IV START INTRADERMA PRN (11:22)
[2022-07-02] MEDS ORDERED: LACTATED RINGERS 1,000 ML IV SCH (11:22)
[2022-07-02] MEDS ORDERED: LACTATED RINGERS 1,000 ML IV ONE (11:28)
[2022-07-02 11:32] VITALS: TEMP 98
[2022-07-02] MEDS ORDERED: ROPIVACAINE 5 MG/ML 20 ML AMPULE ONE (11:45)
[2022-07-02] MEDS ORDERED: methylPREDNISolone ACETATE 40 MG/ML 1 ML VIAL ONE (11:45)
[2022-07-02] MEDS ORDERED: fentaNYL (PF) 50 MCG/ML 2 ML AMP ONE (11:45)
[2022-07-02] MEDS ORDERED: MIDAZOLAM 2 MG/2 ML VIAL ONE (11:45)
--- NOTE | 2022-07-02 12:17 | P.PCN ---
Date of Procedure: 07/02/22 Procedure(s) Performed: PREOPERATIVE DIAGNOSIS: 1-Lumbar Spondylosis with Facet Arthropathy without myelopathy. 2- Lumber degenerative disc disease. POSTOPERATIVE DIAGNOSIS: 1- Lumbar Spondylosis with Facet Arthropathy without myelopathy. 2- Lumber degenerative disc disease. PROCEDURES : Bilateral Radiofrequency thermocoagulation, L3 , L4 , and L5 medial branch, with fluoroscopic guidance (fluoroscopy images available in the radiology department) ( to denervate the facet joint at L4-5 ,and L5-S1 levels ). ANESTHESIA: Monitored anesthesia care as per anesthesia department . EBL: Minimal PROCEDURE INDICATION: The patient with low back pain secondary to lumbar facet arthropathy who had more than 50% relief of her pain with previous diagnostic lumbar medial branch block with bupivacaine. PROCEDURE DESCRIPTION / TECHNIQUE: The patient was seen and identified in the preoperative area. Risks, benefits, complications, including but not limited to risk of infection ,bleeding , allergic reactions to the medications and no complete pain releife , and alternatives were discussed with the patient, the patient agreed to proceed with the procedure and signed the consent. IV was started. Vital signs remained stable throughout the procedure. Patient was taken to the OR and time out was completed. The patient was placed in the prone position on the procedure table. The lumber area was prepped and draped in the usual sterile fashion. . Vital signs were closely monitored during the procedure .IV sedation was used during the procedure to decrease patients anxiety. Using AP and then oblique fluoroscopy, the ``eye of the Frederick dog corresponding to the connection between the superior and transverse articular processes of right L3, L4, and L5 were identified, marked, and localized with 1% lidocaine. Subsequently, a 18 [id number] radiofrequency cannula with a 10- mm active tip was advanced guided by fluoroscopy to each of the``eyes of the Frederick dog at right L3, L4, and L5. Each site then underwent sensory testing at 50 Hz and 0 to 1 volt and motor testing at 2.5 Hz and 0 to 3 volt with local stimulation, but no radicular symptoms down the legs. Thereafter each sites underwent radiofrequency thermocoagulation at 80 degrees celsius for 90 seconds after injecting 0.5 ml of PF Ropivacaine 1ml, then after the thermocoagulation done , 1 ml of the block solution containing Depo-Medrol 20 mg and 3 ml of Ropivacaine 0.5% was injected at the right L3 , L4 , and L5 , levels after negative aspiration of CSF and blood and with no paresthesias. Cannulas were retracted while injecting lidocaine 1% until the needle is out. The same procedure was repeated at the level of Left L3, L4, and L5 levels. At the end of the procedure, the skin was cleansed and bandages were applied. COMPLICATIONS: No acute complications. DISPOSITION / PLANS: The patient was placed in a supine position and transferred to the recovery area in a stable condition for observation and was discharged from the recovery room after meeting discharge criteria. Home discharge instructions given to the patient by the staff. The patient was reexamined prior to discharge. The patient will schedule a follow up in the clinic in 2-4 weeks.
[2022-07-02] MEDS ORDERED: IV FLUID CONTINUATION 800 ML IV ONE (12:23)
[2022-07-02 12:25] VITALS: RESP 16
--- NOTE | 2022-07-02 12:26 | FL ---
Intraoperative/procedural fluoroscopic services were provided for bilateral lumbar radiofrequency. To beverly fluoroscopy time is 32 seconds with a total of 6 submitted images to PACS. Please see the operati ve note for further details.
[2022-07-02 12:33] VITALS: BP 168/74; PULSE 65
== END 2022-07-02 12:41 | disposition home or self-care (01) ==
LOC: ORPAIN 11:03
PROVIDERS: ATTEND Specialist
DX: M47.816 Spondylosis without myelopathy or radiculopathy, lumbar region (principal); M51.36 Other intervertebral disc degeneration, lumbar region; I10 Essential (primary) hypertension; E78.5 Hyperlipidemia, unspecified; E07.9 Disorder of thyroid, unspecified; M19.90 Unspecified osteoarthritis, unspecified site; F41.9 Anxiety disorder, unspecified; Z87.891 Personal history of nicotine dependence; Z88.0 Allergy status to penicillin; Z88.2 Allergy status to sulfonamides; Z79.82 Long term (current) use of aspirin; Z79.899 Other long term (current) drug therapy; Z79.890 Hormone replacement therapy; Z90.49 Acquired absence of other specified parts of digestive tract; Z90.710 Acquired absence of both cervix and uterus; Z98.49 Cataract extraction status, unspecified eye
CPT/HCPCS: 64635; 64636; J2250; J1030; J3010; J2795

== ENCOUNTER → 2023-02-28 | Outpatient (CLI) | payer MEDICARE | END | disposition home or self-care (01) | LOC: LABWHC1 10:48 | PROVIDERS: ATTEND Family Medicine | DX: Z01.812 Encounter for preprocedural laboratory examination (principal); M16.11 Unilateral primary osteoarthritis, right hip; Z22.322 Carrier or suspected carrier of Methicillin resistant Staphylococcus aureus | CPT/HCPCS: 87070 ==

== ENCOUNTER → 2023-03-01 | Outpatient (CLI) | payer MEDICARE ==
[2023-03-02 01:53] LABS: Appearance,Urine Clear (Clear); Bilirubin,Urine Negative (Negative); Blood,Urine Negative (Negative); Color,Urine Yellow (Yellow); Ketones,Urine Negative (Negative); Nitrite,Urine Negative (Negative); PH, Urine 6.5; Specific Gravity,Urine 1.011 (1.001-1.030)
[2023-03-02 02:05] LABS: Bacteria,Urine None Seen (None Seen)
== END | disposition home or self-care (01) ==
LOC: LABPAT 11:48
PROVIDERS: ATTEND Orthopaedic Surgery
DX: Z01.812 Encounter for preprocedural laboratory examination (principal); M16.11 Unilateral primary osteoarthritis, right hip; Z22.322 Carrier or suspected carrier of Methicillin resistant Staphylococcus aureus
CPT/HCPCS: 81001

== ENCOUNTER 2023-03-07 10:44 | Day surgery (SDC) | payer MEDICARE ==
[2023-03-03 16:03] VITALS: BMI 37.1
--- NOTE | 2023-03-06 13:04 | HP ---
HISTORY AND PHYSICAL DATE OF SURGERY: 03/07/2023 HISTORY OF PRESENT ILLNESS: Pat Fabian is an 82-year-old patient seen with symptomatic right hip osteoarthritis. We discussed options for treatment. She elected to proceed with direct anterior right total hip arthroplasty. Consent was obtained. Medical clearance was provided by Dr. Barbie Tyler. PAST MEDICAL HISTORY: Hypertension, hyperlipidemia, hypothyroidism. PAST SURGICAL HISTORY: Cholecystectomy. DAILY MEDICATIONS: 1. Aspirin. 2. Levothyroxine. 3. Rosuvastatin. 4. Zetia. ALLERGIES: Penicillin. SOCIAL HISTORY: She denies tobacco use. PHYSICAL EVALUATION OF RIGHT HIP: Diffuse tenderness about the hip girdle. Positive hip impingement sign. Limited range of motion of the right hip with severe pain. Straight-leg raise negative. Distal neurovascular exam intact. IMAGING: Right hip radiographs reveal severe osteoarthritic changes. IMPRESSION: 1. Right hip osteoarthritis. 2. Hypertension. 3. Hyperlipidemia. 4. Hypothyroidism. PLAN: Direct anterior right total hip arthroplasty. MMODL / IJN: [id number] /
[~2023-03-07 10:44] MED LIST changes: +ACETAMINOPHEN TAB 500 MG TAB PO PRN; -LACTATED RINGERS 1,000 ML IV SCH; +MELOXICAM 7.5 MG TAB PO PRN; +ONDANSETRON 4 MG/2 ML VIAL IVP ONE; +TRANEXAMIC 1,000 MG/100ML-NACL 1,000 MG in SALINE 1 100ML.BAG IVPB PRN
[2023-03-07] MEDS ORDERED: LACTATED RINGERS 1,000 ML IV ONE ×3 (11:21→15:33)
[2023-03-07] MEDS ORDERED: MIDAZOLAM 2 MG/2 ML VIAL IVP ONE (11:27)
[2023-03-07] MEDS ORDERED: ceFAZolin 1,000 MG in SODIUM CHLORIDE 0.9% 1,000 ML IRRIGATION ONE (12:18)
[2023-03-07] MEDS ORDERED: HYDROmorphone 0.5 MG/0.5 ML SYRINGE IVP PRN ×3 (13:43)
[2023-03-07] MEDS ORDERED: ONDANSETRON 4 MG/2 ML VIAL IVP PRN (13:43)
[2023-03-07] MEDS ORDERED: NALOXONE 0.4 MG/ML 1 ML VIAL IV PRN (13:43)
[2023-03-07] MEDS ORDERED: HYDROcodone/APAP 5-325MG 1 EACH TAB PO PRN (13:43)
--- NOTE | 2023-03-07 13:43 | P.OP ---
Date of Procedure: 03/07/23 Preoperative Diagnosis: Right hip osteoarthritis Postoperative Diagnosis: Right hip osteoarthritis Procedure(s) Performed: Direct anterior right total hip arthroplasty Implants: 1. Depuy Corail 135 standard collar KA size 12 press-fit femoral stem 2. Depuy pinnacle 56 mm multi hole press-fit acetabular shell 3. Depuy pinnacle neutral polyethylene acetabular liner 36 mm ID 56 mm OD 4. Biolox delta ceramic femoral head +1.5 36 mm Anesthesia: regional (erector spinae block), spinal Surgeon: Leon Seay Scouring Machine Tender #1: Nnamdi Nagy Estimated Blood Loss (ml): 70 Pathology: none sent Condition: stable Disposition: PACU Indications for Procedure: 82-year-old patient seen with symptomatic right hip osteoarthritis. After having treatment options discussed, she elected to proceed with total hip arthroplasty. Operative Findings: See description of procedure Description of Procedure: The patient was taken to the operative suite. Patient underwent a spinal ane sthetic by the department of anesthesia. Patient was then transferred to the [place] table. Patient was given preoperative IV antibiotics and TXA. Both lower extremities were placed in standard leg spars. The hip was then prepped and draped in the normal sterile orthopedic fashion. A standard anterior incision was made beginning 3 cm lateral and 1 cm distal to the ASIS extending 10 cm. Dissection was then carried down through the subcutaneous soft tissues down to the fascia overlying the tensor fascia oseas. An incision was now made through the fascia. Careful dissection was taken down exposing the tensor fascia oseas muscle. A Cobra retractor was now placed along the medial femoral neck and a second one along the lateral femoral neck. The venous circumflex vessels were now identified, cauterized and clipped. We identified the anterior hip capsule. An incision was made through the hip capsule along the lateral border. I performed a partial anterior capsulectomy. Retractors were now placed around the femoral neck itself. A femoral neck cut was now made with a sagittal saw. It was completed with an osteotome at the lateral neck area. The femoral head was now removed without difficulty. The extremity was now rotated to 60 of external rotation. It was locked in position. Residual labrum was now debrided out. Serial reaming was performed of the acetabulum while Zachery TURNER assisted holding an anterior retractor for exposure. Once we reached the appropriate size and a trial was position and fit nicely. The appropriate size was now chosen opened and made available. It was introduced into the acetabulum without difficulty. The C-arm/fluoroscopy was now brought into the operative field. We made sure we had a true AP pelvic view. We now under direct C-ar m/fluoroscopy introduced into the acetabular component with appropriate version and inclination. I held the cup in appropriate position well Zachery TURNER used a mallet to seat the acetabular component. I noted the component now to be well seated and stable. Acetabular cup introduce her was removed. The C-arm was pulled back. An appropriate liner was introduced and clicked into position. It was felt to be stable. At this point retractors were removed. The extremity was now placed into 140 external rotation with no traction. The leg was now dropped to the ground and adducted. Appropriate retractors were now positioned along the proximal femur. We also placed our femoral look into position. Additional capsular releasing was performed to gain access to the proximal femur. We now used a box osteotome. A canal finder was now utilized. Serial broaching was now performed with the assistance of Zachery TURNER tapping the broaches down with a mallet while held the broach in appropriate rotation and position. This was done until we reached the appropriate size with good overall rotational stability. Appropriate calcar planing was performed. A trial head/neck was placed into position. The hip was now reduced. The C- arm/fluoroscopy was brought back into the operative field. I took an AP pelvis which demonstrated adequate leg length alignment. Trial components appeared adequately sized and positioned. The C-arm/fluoroscopy was pulled back. Retractors were repositioned and the hip was dislocated. The leg was again taken down to the ground and adducted. Appropriate retractors were repositioned as well as the femoral hook. All trial components were removed. The femoral implant was opened along with the femoral head. The femoral implant was introduced on the appropriate handle into our pre-broached area. I held the component position well Zachery TURNER used a mallet to seat the femoral component. The femoral component was now noted to be well seated and stable.. The femoral head was introduced with good positioning and fixation noted. Retractors were now removed. The hip was now reduced. There appeared be good positioning of the hip confirmed on intraoperative fluoroscopy. Spot films were obtained to document this. A second gram of TXA was given. Bipolar cautery had been utilized intermittently through the procedure for hemostasis. The wound was irrigated copiously with pulse lavage mechanical irrigation. The fascia was repaired with Vicryl suture. The subcutaneous soft tissues were repaired in layers with Vicryl suture. The skin was approximated with pernio/Dermabond. Sterile dressings were applied. Patient was then awakened, transferred to a bed and taken to recovery in stable condition. Zachery TURNER assisted with the complex procedure.
--- NOTE | 2023-03-07 13:55 | XR ---
Intraoperative/procedural fluoroscopic services were provided for right total hip arthroplasty. Total fluoroscopy time is 14.1 seconds with a total of 2 submitted images to PACS. Total DAP 1.2649 Gycm2. Please see the operative note for further details.
[2023-03-07] MEDS: HYDROmorphone 0.5 MG/0.5 ML SYRINGE IVP PRN ×3 (14:56→16:21)
[2023-03-07] MEDS: LACTATED RINGERS 1,000 ML IV SCH ×2 (20:25)
[2023-03-07] MEDS ORDERED: SENNOSIDES-DOCUSATE SODIUM 1 EACH TAB PO SCH (21:00)
[2023-03-07] MEDS: SODIUM CHLORIDE 0.9% 1,000 ML IV SCH (21:02)
--- NOTE | 2023-03-07 21:02 | P.ANPRN ---
Procedure Note - Anesthesia - Nerve Block Performed Right Arnie Single Time Out Performed: Yes Date of Procedure: 03/07/23 Procedure Start Time: 11:36 Procedure Stop Time: 11:41 Location of Patient: PreOp Indication: Acute Post-Operative Pain, Requested by Surgeon Sedation Type: Sedate with meaningful contact maintained Preparation: Sterile Prep Position: Supine Needle Types: Pajunk Needle Gauge: 21 Ultrasound used to visualize needle placement: Yes Ultrasound used to observe medication spread: Yes Blood Aspirated: No Pain Paresthesia on Injection Noted: No Resistance on Injection: Normal Image Stored and Saved: Yes Events: Uneventful and Well Tolerated (ropi .5% 25 cc plus dexmethasone 4mg)
[2023-03-08] MEDS: HYDROcodone/APAP 7.5-325MG 1 EACH TAB PO PRN ×2 (00:28→06:22)
[2023-03-08] MEDS: SODIUM CHLORIDE 0.9% 1,000 ML IV SCH (04:09)
[2023-03-08] MEDS: LACTATED RINGERS 1,000 ML IV SCH ×2 (06:08)
[2023-03-08] MEDS ORDERED: LEVOTHYROXINE 25 MCG TAB PO SCH (06:30)
[2023-03-08 08:23] VITALS: BP 118/54; PULSE 67; RESP 19; TEMP 97.9
[2023-03-08] MEDS ORDERED: ASPIRIN 81 MG PO SCH (09:00)
[2023-03-08] MEDS ORDERED: FLUoxetine HCL 20 MG CAP PO SCH (09:00)
[2023-03-08] MEDS ORDERED: ATORVASTATIN 20 MG TAB PO SCH (09:00)
[2023-03-08] MEDS ORDERED: EZETIMIBE 10 MG TAB PO SCH (09:00)
[2023-03-08] MEDS ORDERED: ENOXAPARIN 40 MG/0.4 ML SYRINGE SQ SCH (09:00)
[2023-03-08] MEDS ORDERED: FAMOTIDINE 20 MG TAB PO SCH (09:00)
[2023-03-08] MEDS ORDERED: TROSPIUM CHLORIDE 20 MG TABLET PO SCH (09:00)
--- NOTE | 2023-03-08 10:52 | P.PN ---
Subjective Progress Note Date: 03/08/23 Principal diagnosis: Status post direct anterior right total hip arthroplasty Patient evaluated at bedside, she is resting comfortably, she has family present. She has been doing some nausea last half-hour so, she received some IV Zofran. She did very well with physical therapy with ambulation. Her pain is controlled on current medication. She denies any headaches, lightheadedness, chest pain or shortness of breath. Objective - Vital Signs Vital signs: Vital Signs Temp 97.9 F 03/08/23 08:19 Pulse 67 03/08/23 08:19 Resp 19 03/08/23 08:19 BP 118/54 03/08/23 08:19 Pulse Ox 91 L 03/08/23 08:19 FiO2 Intake & Output 03/07/23 03/08/23 03/08/23 18:59 06:59 18:59 Intake Total 1426 Output Total 70 Balance 1356 Weight 105.1 kg Intake: IV 1426 Output: Urine 0 Estimated Blood Loss 70 Other: Voiding Method Toilet # Voids 1 - Exam Right lower extremity: Incision is clean, dry, and intact. The foam dressing is in good condition. There is minimal soft tissue swelling and ecchymosis surrounding the medial and lateral aspects of the incision. Calf is soft, no tenderness with palpation. Plantar flexion, dorsiflexion, EHL, FHL are intact. Sensory exam to light touch throughout the extremity is intact, dorsal pedis pulses 2+. Assessment and Plan Assessment: Postoperative day #1 status post direct anterior right total hip arthroplasty Plan: Pain control, plan for discharge on [place] 7.5 mg/325 mg DVT prophylaxis, aspirin 81 mg twice a day for 30 days Wound care instructions were discussed, this concluded bandage instructions, icing and elevating and showering Encourage incentive spirometer Medical recommendations Discharge planning: Patient stable for discharge home today Time with Patient: Less than 30
--- NOTE | 2023-03-08 10:57 | P.CONS ---
History of Present Illness - Reason for Consult Consult date: 03/08/23 Medical management hypertension, hypothyroidism Requesting physician: Leon Seay - Chief Complaint Right hip osteoarthritis, status post anterior right total hip arthroplasty - History of Present Illness This is a pleasant 82-year-old female with past medical history significant for skin cancer, hyperlipidemia, hypertension, mild memory impairment, osteoarthritis, hypothyroidism, anxiety, former nicotine dependence and multiple other medical issues, status post direct anterior right total hip arthroplasty secondary To right hip osteoarthritis. Tolerated procedure well. Currently sitting up in chair, ambulating and has performed the stairs with physical therapy. Tolerated exertion well. Denies lightheadedness dizziness or focal deficits. Pain controlled, reports mild burning sensation. Denies chest pain, palpitations or shortness of breath. Maintaining O2 sats in the low 90s on room air. Denies cough or congestion. Afebrile. Good diet intake, denies nausea vomiting or diarrhea. Review of Systems ROS Statement: Those systems with pertinent positive or pertinent negative responses have been documented in the HPI. ROS Other: All systems not noted in ROS Statement are negative. Past Medical History Past Medical History: Cancer, Hyperlipidemia, Hypertension, Memory Impairment, Osteoarthritis (OA), Thyroid Disorder Additional Past Medical History / Comment(s): Hx skin cancer. Daughter - Liz states patient has some memory problems. History of Any Multi-Drug Resistant Organisms: None Reported Past Surgical History: Cholecystectomy, Hysterectomy Additional Past Surgical History / Comment(s): Cataract surgery. Past Anesthesia/Blood Transfusion Reactions: No Reported Reaction Past Psychological History: Anxiety Smoking Status: Former smoker Past Alcohol Use History: Occasional Additional Past Alcohol Use History / Comment(s): Quit smoking 40+ yrs ago. Past Drug Use History: None Reported - Past Family History Mother Family Medical History: Cancer Additional Family Medical History / Comment(s): Uterine cancer. Brother(s) Family Medical History: Cancer Medications and Allergies Home Medications Medication Instructions Recorded Confirmed Type Ezetimibe [Zetia] 10 mg PO DAILY 08/28/19 03/03/23 History FLUoxetine HCL [PROzac] 20 mg PO QAM 08/28/19 03/03/23 History Rosuvastatin [Crestor] 10 mg PO DAILY 08/28/19 03/03/23 History nadoloL [Corgard] 40 mg PO QAM 08/28/19 03/03/23 History Aspirin [Adult Low Dose Aspirin EC] 81 mg PO DAILY 06/30/22 03/03/23 History Levothyroxine Sodium 25 mcg PO QAM 03/03/23 03/03/23 History Solifenacin Succinate [Vesicare] 5 mg PO QAM 03/03/23 03/03/23 History Allergies Allergy/AdvReac Type Severity Reaction Status Date / Time Penicillins Allergy throat Verified 03/03/23 11:09 swelling Physical Exam Vitals: Vital Signs Temp Pulse Pulse Resp BP Pulse Ox 03/08/23 08:19 97.9 F 67 19 118/54 91 L 03/08/23 07:04 98.4 F 82 17 108/68 98 03/08/23 00:12 97.5 F L 61 18 115/67 94 L 03/07/23 19:15 97.9 F 58 L 18 124/70 96 03/07/23 18:09 98.1 F 59 L 19 156/80 95 03/07/23 17:40 98 03/07/23 17:30 59 L 16 133/63 92 L 03/07/23 17:01 57 L 16 140/64 91 L 03/07/23 16:31 57 L 16 145/59 92 L 03/07/23 16:15 54 L 16 171/83 98 03/07/23 16:00 55 L 16 155/74 98 03/07/23 15:32 55 L 16 162/71 98 03/07/23 15:15 52 L 16 146/66 98 03/07/23 15:00 51 L 14 150/68 98 03/07/23 14:45 56 L 14 177/69 98 03/07/23 14:30 55 L 14 156/67 95 03/07/23 14:15 55 L 14 174/72 95 03/07/23 14:05 96.9 F L 59 L 14 113/59 95 03/07/23 11:46 56 L 16 123/59 97 03/07/23 11:21 97.7 F 62 18 151/68 95 Intake and Output 03/07/23 03/08/23 03/08/23 22:59 06:59 14:59 Intake Total 475 Output Total 0 Balance 475 Intake: IV 475 Output: Urine 0 Other: Voiding Method Toilet # Voids 1 Weight 105.1 kg Gen: well developed well nourished female in NAD, sitting up in chair HEENT: NC/AT, mmm Neck: supple, no JVD, no thyromegaly CV: RRR, no murmur Lungs: Normal effort, clear throughout Abd: soft, nontender, non distended Extremities: Right hip dressing clean dry and intact, minimal edema/bruising. Denies clubbing or calf tenderness, positive DP pulse. Neuro: alert and oriented x3, no focal deficit Skin: warm and dry Assessment and Plan Assessment: Right hip osteoarthritis status post direct anterior right total hip arthroplasty Postoperative atelectasis, expected outcome, maintaining O2 sats in the low 90s on room air Morbid obesity, BMI 37 Hypertension Hyperlipidemia Anxiety Mild memory impairment Hypothyroidism Former nicotine dependence Plan: Continue on current medication regime ,monitoring and symptomatic treatment. Aggressive pulmonary toileting with incentive spirometer reinforced. PT. Pain management/DVT prophylaxis as per primary. Home meds have been reviewed and resumed accordingly. Follow-up with PCP in one week. Thank you for the consult. The impression and plan of care has been dictated as directed. : I performed a history and examination of this patient, discussed the same with the dictator. I agree with the dictator's note ,documented as a scribe. Any additional findings or plans will be noted.
[2023-03-08 11:05] LABS: Basophils # (A) 0.02 X 10*3/uL (0.00-0.10); Basophils % (A) 0.2 %; Eosinophils # (A) 0 X 10*3/uL (0.04-0.35); Eosinophils % (A) 0 %; HCT 33.9 % (37.2-46.3); Lymphocytes # (A) 1.05 X 10*3/uL (0.90-5.00); Lymphocytes % (A) 12.2 %; MCH 33.5 pg (27.0-32.0); MCHC 32.4 d/dL (32.0-37.0); MCV 103.4 FL (80.0-97.0); Mean Platelet Volume 10.1 FL (9.5-12.2); Monocytes # (A) 1.14 X 10*3/uL (0.20-1.00); Monocytes % (A) 13.2 %; NRBC Per 100 WBC 0 X 10*3/uL (0.00-0.01); Neutrophils # (A) 6.37 X 10*3/uL (1.80-7.70); Neutrophils % (A) 73.9 %; Platelet Count 184 X 10*3/uL (140-440); RBC 3.28 X 10*6/uL (4.10-5.20); RDW 12.3 % (11.5-14.5); WBC 8.62 X 10*3/uL (4.50-10.00)
--- NOTE | 2023-03-09 16:50 | P.DS ---
Providers Date of admission: 03/07/2023 Expected date of discharge: 03/08/23 Attending physician: Leon Seay Consults: 03/07/23 13:43 Consult Physician Routine Consulting Provider: Flakito Tyler Consult Reason/Comments: Medical management Do you want consulting provider notified?: Yes Primary care physician: Vincenzo Tyler MD Hospital Course: Date of admission: 03/07/2023 Date of discharge: 03/08/2023 Admission diagnosis: Status post direct anterior right total hip arthroplasty Discharge diagnosis: Same Attending physician: Dr. Seay Surgical procedures: Direct anterior right total hip arthroplasty Brief history: Patient is a 82-year-old female with a history of progressive primary right hip osteoarthritis . At this point patient has failed conservati ve treatment measures and has opted to proceed with a elective direct anterior right total hip arthroplasty. Hospital course: Details of patient's surgery can be found in operative report. Patient tolerated the procedure well and was subsequently transported to orthopedic floor. Patient's orthopeidc and medical care was provided daily. Patient had daily laboratory tests performed for evaluation of overall blood counts. Patient had daily physical therapy to include strengthening range of motion as well as education with walker ambulation. Patient was treated with Lovenox for their postoperative DVT prophylaxis during their inpatient stay. Patient was noted to have a relatively uneventful postoperative course. Patient reported satisfactory pain control with oral pain medications by postoperative day 0. Patient showed satisfactory progress with physical therapy. Patient moved steadily through the program and had no difficulty meeting the goals by postoperative day 1. Given patient's otherwise satisfactory course and having met physical therapy goals, plan is to discharge patient home on postoperative day 1. Discharge condition/disposition: Patient will be discharged home in stable condition. Discharge medications: Instructions are given on resumption of patient's normal daily medications per primary care recommendation, in addition patient will be prescribed [place] 7.5 mg/325 mg, aspirin 81 mg, Zofran 8. Discharge instructions: 1. Wound care and infection precautions, keep incision dry and covered while showering, no lotions, creams, moisturizers. No soaking, tubs, pools, hottubs. Do not scrub over the incision. 2. Weight-bear as tolerated with walker / cane until follow-up. 3. Ice and elevate when necessary. Do not exceed 20 minutes per hour with ice pack. 4. Utilize compression sleeve until seen at first follow up appointment. 5. Visiting nursing care. 6. Home physical therapy. 7. Pain meds and anticoagulants per prescription. 8. Pain medication has potential to cause constipation. Increase oral fluid and fiber intake. Contact primary care provider if you have not had a bowel movement within 48 hours after discharge 9. No anti-inflammatory medication until discussed at first post operative visit, this including Motrin, Aleve, Mobic, Diclofenac. 10. Follow up in office at 2 weeks postop with Zachery Nagy PA-C/Gavnio Salcedo 11. Follow up with your primary care doctor 7-10 days after discharge. 12. Contact [facility] with any questions, . Procedures: Direct anterior right total hip arthroplasty Plan - Discharge Summary Discharge Rx Participant: Yes New Discharge Prescriptions: New HYDROcodone/APAP 7.5-325MG [[place] 7.5] 1 each PO Q6HR PRN #28 tab PRN Reason: Pain ondansetron HCL [Zofran] 8 mg PO Q12HR PRN #14 tab PRN Reason: Nausea Aspirin [Adult Low Dose Aspirin EC] 81 mg PO BID #60 tab No Action nadoloL [Corgard] 40 mg PO QAM Ezetimibe [Zetia] 10 mg PO DAILY FLUoxetine HCL [PROzac] 20 mg PO QAM Rosuvastatin [Crestor] 10 mg PO DAILY Aspirin [Adult Low Dose Aspirin EC] 81 mg PO DAILY Levothyroxine Sodium 25 mcg PO QAM Solifenacin Succinate [Vesicare] 5 mg PO QAM Discharge Medication List Ezetimibe [Zetia] 10 mg PO DAILY 08/28/19 [History] FLUoxetine HCL [PROzac] 20 mg PO QAM 08/28/19 [History] Rosuvastatin [Crestor] 10 mg PO DAILY 08/28/19 [History] nadoloL [Corgard] 40 mg PO QAM 08/28/19 [History] Aspirin [Adult Low Dose Aspirin EC] 81 mg PO DAILY 06/30/22 [History] Levothyroxine Sodium 25 mcg PO QAM 03/03/23 [History] Solifenacin Succinate [Vesicare] 5 mg PO QAM 03/03/23 [History] Aspirin [Adult Low Dose Aspirin EC] 81 mg PO BID #60 tab 03/08/23 [Rx] HYDROcodone/APAP 7.5-325MG [[place] 7.5] 1 each PO Q6HR PRN #28 tab 03/08/23 [Rx] ondansetron HCL [Zofran] 8 mg PO Q12HR PRN #14 tab 03/08/23 [Rx] Follow up Appointment(s)/Referral(s): Flakito Tyler MD [STAFF PHYSICIAN] - 03/14/23 3:00 pm (with Nnamdi Puri PAC [PHYSICIAN OPERATOR [facility]] - 03/23/23 2:10 pm [facility] Visiting Nurse, [NON-STAFF] - 1-2 Days ([facility] will call you to schedule your in home in home nursing and physical therapy visits. ) Patient Instructions/Handouts: Anterior Hip Replacement (DC) Activity/Diet/Wound Care/Special Instructions: Orthopedic Discharge Instructions: 1. Wound care and infection precautions, keep incision dry and covered while showering, no lotions, creams, moisturizers. No soaking, pools, hot tubs. Do not scrub over incision. 2. Weight-bear as tolerated with walker / cane until follow-up. 3. Ice and elevate when necessary. Do not exceed 20 minutes per hour with ice pack. 4. Utilize compression sleeve until seen at first follow up appointment. 5. Pain meds and anticoagulants per prescription. 6. Pain medication has potential to cause constipation. Increase oral fluid and fiber intake. Contact primary care provider if you have not had a bowel movement within 48 hours after discharge. 7. No anti-inflammatory medication until discussed at first post operative visit, this including Motrin, Aleve, Mobic, Diclofenac. 8. Follow up in office at 2 weeks postop with Zachery Nagy PA-C / Gavino Boss PA-C 9. Follow up with your primary care doctor 7-10 days after discharge. 10. Contact [facility] with any questions, . Keep incision clean, dry, intact. While showering, cover silver foam dressing with Saran wrap. Silver foam dressing may be removed on 03/14/2023. It is okay to shower directly over incision once dressing is removed. Discharge Disposition: HOME WITH HOME HEALTH SERVICES
== END 2023-03-08 13:59 | disposition home health service (06) ==
LOC: OR 10:44 → 4SSUR 13:39 → OR 03-08 13:59
PROVIDERS: ATTEND Orthopaedic Surgery
DX: M16.11 Unilateral primary osteoarthritis, right hip (principal); G89.18 Other acute postprocedural pain; I10 Essential (primary) hypertension; E78.5 Hyperlipidemia, unspecified; E03.9 Hypothyroidism, unspecified; Z79.82 Long term (current) use of aspirin; Z79.899 Other long term (current) drug therapy; Z90.49 Acquired absence of other specified parts of digestive tract; Z88.0 Allergy status to penicillin
CPT/HCPCS: 97161; 64447; 86900; 86901; 85025; 86850; 73501; 27130; C1776; J2250; J0690 ×3; J2405 ×2; J1650; J1170

== ENCOUNTER → 2023-10-27 | Outpatient (CLI) | payer MEDICARE ==
[~2023-10-27] MED LIST changes: -ACETAMINOPHEN TAB 500 MG TAB PO PRN; -LIDOCAINE 1% (10MG/ML) FOR IV START INTRADERMA PRN; -MELOXICAM 7.5 MG TAB PO PRN; -ONDANSETRON 4 MG/2 ML VIAL IVP ONE; +REGADENOSON 0.4 MG/5 ML SYRINGE IV PRN; -TRANEXAMIC 1,000 MG/100ML-NACL 1,000 MG in SALINE 1 100ML.BAG IVPB PRN
--- NOTE | 2023-10-27 12:27 | NM ---
EXAMINATION TYPE: NM myocardial SPECT single DATE OF EXAM: 10/27/2023 COMPARISON: NONE CLINICAL INDICATION: Female, 83 years old with history of I20.9 ANGINA PECTORIS, UNSPECIFIED; Following administration of 10.23 mCi Tc 99m Sestamibi. Resting SPECT obtained post injection. FINDINGS: On the resting images were acquired. The stress portion was canceled by the clinician due to elevated blood pressure. There are defects along the mid to basal anterior and inferior frank. Unclear this c orresponds to attenuation artifacts or areas of old infarct and can be correlated clinically. Gated a nalysis shows normal wall motion with estimated left ventricular ejection fraction of 66% IMPRESSION: Resting defect along the mid to basal anterior and inferior frank. Given normal calculated LVEF of 66 % and overall normal wall motion, suspect prominent attenuation artifact. Correlate for any history o f prior infarcts. Stress portion canceled by the clinician due to elevated blood pressure.
== END | disposition home or self-care (01) ==
LOC: RADNMMAIN 08:06
PROVIDERS: ATTEND Family Medicine
DX: I20.9 Angina pectoris, unspecified (principal); R03.0 Elevated blood-pressure reading, without diagnosis of hypertension
CPT/HCPCS: 78451; A9500

== ENCOUNTER → 2024-03-15 | Outpatient (CLI) | payer MEDICARE ==
--- NOTE | 2024-03-15 16:55 | CT ---
EXAMINATION TYPE: CT abdomen pelvis wo con DATE OF EXAM: 03/15/2024 COMPARISON: None HISTORY: LLQ pain CT DLP: 1029 mGycm Examination of the solid and hollow viscera is limited given the lack of contrast. FINDINGS: LUNG BASES: No evidence for nodule. No evidence for infiltrate. Cardiomegaly. LIVER/GB: The gallbladder is surgically absent. No space-occupying hepatic lesion. PANCREAS: No pancreatic mass identified. No inflammatory process seen. SPLEEN: No evidence for splenomegaly. No intrasplenic lesions seen. ADRENALS: No adrenal nodules identified. No evidence for thickening. KIDNEYS: No evidence for renal mass. No nephrolithiasis. No hydronephrosis. BOWEL: Appendix has a normal appearance. No evidence of bowel obstruction. No inflammatory process. Lymph nodes: No evidence for adenopathy greater than 1 cm. Abdominal aorta: Atheromatous changes seen. No evidence for aneurysm. Genital organs: No significant abnormality. Other: Postoperative changes right hip. Degenerative changes lumbar spine. IMPRESSION: SIGMOID DIVERTICULOSIS WITHOUT DIVERTICULITIS [facility], , 03/15/2024 4:52 PM
== END | disposition home or self-care (01) ==
LOC: RADCTMAIN 13:49
PROVIDERS: ATTEND Family Medicine
DX: K57.30 Diverticulosis of large intestine without perforation or abscess without bleeding (principal); R10.32 Left lower quadrant pain; R30.0 Dysuria
CPT/HCPCS: 74176

== ENCOUNTER 2024-05-13 12:29 | Observation (INO) | payer MEDICARE ==
--- NOTE | 2024-05-13 13:15 | XR ---
EXAMINATION TYPE: XR chest 2V DATE OF EXAM: 05/13/2024 CLINICAL HISTORY: Chest pain since 10:30 TECHNIQUE: Frontal and lateral views of the chest are obtained. COMPARISON: None FINDINGS: Overlying EKG leads are seen. There is no focal air space opacity, pleural effusion, or pne umothorax seen. The cardiac silhouette size is mildly enlarged. The osseous structures are deminer alized. Degenerative change in the left glenohumeral joint is seen. IMPRESSION: Mild cardiomegaly without acute pulmonary process. [facility], , 05/13/2024 1:13 PM
[2024-05-13 13:19] LABS: ALT 17 U/L (4-34); AST 34 U/L (14-36); African American GFR (CKD) >90 (>60 ml/min/1.73 sqM); Albumin 3.2 g/dL (3.5-5.0); Alkaline Phosphatase 64 U/L (38-126); Anion Gap 6 mmol/L; Blood Urea Nitrogen 7 mg/dL (7-17); Calcium 9.2 mg/dL (8.4-10.2); Carbon Dioxide 24 mmol/L (22-30); Chloride 109 mmol/L (98-107); Glucose 100 mg/dL (74-99); Lipase 320 U/L (23-300); Non-African American GFR(CKD) 83 (>60 ml/min/1.73 sqM); Sodium 139 mmol/L (137-145); Total Bilirubin 1.4 mg/dL (0.2-1.3); Total Protein 5.9 g/dL (6.3-8.2)
[2024-05-13 13:28] LABS: Potassium 4.3 mmol/L (3.5-5.1)
[2024-05-13 15:03] LABS: Basophils % (A) 0 %; Eosinophils # (A) 0.1 k/uL (0-0.7); Eosinophils % (A) 2 %; HCT 40.6 % (34.0-46.0); HGB 13.6 gm/dL (11.4-16.0); Lymphocytes # (A) 0.8 k/uL (1.0-4.8); Lymphocytes % (A) 14 %; MCH 33.7 pg (25.0-35.0); MCHC 33.6 g/dL (31.0-37.0); MCV 100.3 fL (80.0-100.0); Mean Platelet Volume 10.3; Monocytes # (A) 0.2 k/uL (0-1.0); Monocytes % (A) 4 %; Neutrophils # (A) 4.3 k/uL (1.3-7.7); Neutrophils % (A) 78 %; RBC 4.05 m/uL (3.80-5.40); RDW 13.2 % (11.5-15.5); WBC 5.5 k/uL (3.8-10.6)
[2024-05-13 15:25] LABS: Partial Thromboplastin Time 24.7 sec (22.0-30.0); Prothrombin Time 11.2 sec (10.0-12.5)
[2024-05-13 15:54] LABS: Platelet Count 47 k/uL (150-450)
--- NOTE | 2024-05-13 16:12 | CT ---
EXAMINATION TYPE: CT chest angio for PE DATE OF EXAM: 05/13/2024 4:03 PM COMPARISON: Chest radiograph from same day. . CLINICAL INDICATION: Female, 83 years old with history of elevated d-dimer, chest pain; Pt c/o chest pain that started at 1030 TECHNIQUE/CONTRAST: CTA scan of the thorax is performed with IV Contrast, patient injected with 100ml mL of Isovue 370, M IP images are created and reviewed these are created on a separate workstation.. CT DLP: 522.1 mGycm, Automated exposure control for dose reduction was used. FINDINGS: Lungs/Pleura: No evidence of focal consolidation, pleural effusion or pneumothorax. Streaky atelectas is in the lung bases. Right medial upper lung calcified granuloma. Airway: Large airways are patent. Heart: The heart is mildly enlarged for size. Atherosclerosis of the arterial vasculature. Vasculature: There is no evidence for a filling defect within the pulmonary vasculature to suggest ac micheal pulmonary embolism. The pulmonary artery is of normal size. Mediastinum: No gross evidence of adenopathy. Musculoskeletal: Moderate degenerative disc disease changes are present throughout the thoracolumbar spine. Soft Tissues/lymph nodes: Unremarkable. Lower neck: No significant findings. Upper Abdomen: The gallbladder surgically absent. Scattered calcified granulomas in the spleen. Few c olonic diverticula. Small hiatal hernia. IMPRESSION: No evidence of pulmonary embolism. Follow up recommendations for incidental pulmonary nodules, if there are any, are per [employer] or [employer]. https://radiopaedia.org/articles/rwpeexedac-esfaqxq-tipitpegn-[email or web address]?lang=us [facility], , 05/13/2024 4:09 PM
--- NOTE | 2024-05-13 16:36 | ED ---
Chest Pain HPI - General Chief Complaint: Chest Pain Stated Complaint: Chest Pain Time Seen by Provider: 05/13/24 12:40 Source: patient, EMS Mode of arrival: EMS Limitations: no limitations - History of Present Illness Initial Comments: 83-year-old female presents emergency department reporting chest pain. Denies history of cardiac disease but does have history of hypertension, hyperlipidemia and thyroid disorder. States that she has had an upper respiratory infection for the past couple of weeks. She has been coughing. At 10:30 AM this morning she started having intense left-sided chest pain which is reproducible with breathing. Continues to have shortness of breath. No fevers. She saw her primary care doctor and was given a Z-Nikolas which she took and finished. She denies asthma or COPD. Does not wear oxygen at home. No nausea, vomiting or diarrhea. No lower extremity swelling. No other alleviating, precipitating modifying factors - Related Data Home Medications Medication Instructions Recorded Confirmed Ezetimibe [Zetia] 10 mg PO HS 08/28/19 05/13/24 FLUoxetine HCL [PROzac] 20 mg PO DAILY 08/28/19 05/13/24 Rosuvastatin [Crestor] 10 mg PO HS 08/28/19 05/13/24 nadoloL [Corgard] 40 mg PO DAILY 08/28/19 05/13/24 Aspirin [Adult Low Dose Aspirin EC] 81 mg PO DAILY 06/30/22 05/13/24 Donepezil [Aricept] 10 mg PO DAILY 05/13/24 05/13/24 Levothyroxine Sodium [Synthroid] 50 mcg PO DAILY 05/13/24 05/13/24 diphenhydrAMINE HCL [Benadryl] 25 mg PO DAILY PRN 05/13/24 05/13/24 guaiFENesin SYRUP 100MG/5ML 200 mg PO Q6H PRN 05/13/24 05/13/24 [Robitussin] Allergies Allergy/AdvReac Type Severity Reaction Status Date / Time Penicillins Allergy throat Verified 05/13/24 16:37 swelling, turned tongue black Review of Systems ROS Statement: Those systems with pertinent positive or pertinent negative responses have been documented in the HPI. ROS Other: All systems not noted in ROS Statement are negative. Past Medical History Past Medical History: Cancer, Hyperlipidemia, Hypertension, Osteoarthritis (OA), Thyroid Disorder Additional Past Medical History / Comment(s): Hx skin cancer. History of Any Multi-Drug Resistant Organisms: None Reported Past Surgical History: Cholecystectomy, Hysterectomy Additional Past Surgical History / Comment(s): cataract surgery Past Anesthesia/Blood Transfusion Reactions: No Reported Reaction Past Psychological History: Anxiety Smoking Status: Former smoker Past Alcohol Use History: Occasional Past Drug Use History: None Reported - Past Family History Mother Family Medical History: Cancer Additional Family Medical History / Comment(s): Uterine cancer. Brother(s) Family Medical History: Cancer General Exam Limitations: no limitations Course Vital Signs 05/13/24 05/13/24 05/13/24 12:31 13:28 17:13 Temperature 98.0 F Pulse Rate 65 68 Pulse Rate [ 65 Sports Medicine Coordinator ] Respiratory 18 18 Rate Blood Pressure 139/65 189/85 O2 Sat by Pulse 97 98 Oximetry 05/13/24 17:38 Temperature Pulse Rate 68 Pulse Rate [ Sports Medicine Coordinator ] Respiratory 18 Rate Blood Pressure 169/75 O2 Sat by Pulse 98 Oximetry Chest Pain MDM - MDM Was pt. sent in by a medical professional or institution (Dr. PA, MEDICAL ATTENDANT, urgent care, hospital, or usp...) When possible be specific @ -[No] Did you speak to anyone other than the patient for history (EMS, parent, family, police, friend...)? What history was obtained from this source @ -[No] Did you review nursing and triage notes (agree or disagree)? Why? @ -[I reviewed and agree with nursing and triage notes] Were old charts reviewed (outside hosp., previous admission, EMS record, old EKG, old radiological studies, urgent care reports/EKG's, usp records)? Report findings @ -[No old charts were reviewed] Differential Diagnosis (chest pain, altered mental status, abdominal pain women, abdominal pain men, vaginal bleeding, weakness, fever, dyspnea, syncope, headache, dizziness, GI bleed, back pain, seizure, CVA, palpatations, mental health, musculoskeletal)? @ -[not applicable] EKG interpreted by me (3pts min.). @ -Yes and demonstrates sinus rhythm with rate of 64. NE interval 180. QRS 94. QTc of 412. No acute ST segment elevations or depressions X-rays interpreted by me (1pt min.). @ -[None done] CT interpreted by me (1pt min.). @ -[None done] U/S interpreted by me (1pt. min.). @ -[None done] What testing was considered but not performed or refused? (CT, X-rays, U/S, labs)? Why? @ -[None] What meds were considered but not given or refused? Why? @ -[None] Did you discuss the management of the patient with other professionals (professionals i.e. DrJhonny, PA, MEDICAL ATTENDANT, lab, RT, psych nurse, social services manager, recreation therapist, teacher, medical corps officer, community case manager)? Give summary @ -[No] Was smoking cessation discussed for >3mins.? @ -[No] Was critical care preformed (if so, how long)? @ -[No] Were there social determinants of health that impacted care today? How? (Homelessness, low income, unemployed, alcoholism, drug addiction, transportat ion, low edu. Level, literacy, decrease access to med. care, detention, rehab)? @ -[No] Was there de-escalation of care discussed even if they declined (Discuss DNR or withdrawal of care, Hospice)? DNR status @ -[No] What co-morbidities impacted this encounter? (DM, HTN, Smoking, COPD, CAD, Cancer, CVA, ARF, Chemo, Hep., AIDS, mental health diagnosis, sleep apnea, morbid obesity)? @ -[None] Was patient admitted / discharged? Hospital course, mention meds given and route, prescriptions, significant lab abnormalities, going to OR and other pertinent info. @ -[hospital course] Undiagnosed new problem with uncertain prognosis? @ -[No] Drug Therapy requiring intensive monitoring for toxicity (Heparin, Nitro, Insulin, Cardizem)? @ -[No] Were any procedures done? @ -[No] Diagnosis/symptom? @ -[default] Acute, or Chronic, or Acute on Chronic? @ -[default] Uncomplicated (without systemic symptoms) or Complicated (systemic symptoms)? @ -[default] Side effects of treatment? @ -[No] Exacerbation, Progression, or Severe Exacerbation? @ -[No] Poses a threat to life or bodily function? How? (Chest pain, [place], VT, pneumonia, PE, COPD, DKA, ARF, appy, cholecystitis, CVA, Diverticulitis, Homicidal, Suicidal, threat to staff... and all critical care pts) @ -[No] Disposition Clinical Impression: Chest pain, Elevated d-dimer Disposition: ADMITTED IP TO THIS [facility] Condition: Stable Is patient prescribed a controlled substance at d/c from ED?: No Time of Disposition: 16:36 Decision to Admit Reason: Admit from EC Decision Date: 05/13/24 Decision Time: 16:36
[2024-05-13] MEDS ORDERED: NALOXONE 0.4 MG/ML 1 ML VIAL IV PRN (16:37)
[2024-05-13] MEDS: ASPIRIN 81 MG PO STA (17:05)
[2024-05-13] MEDS ORDERED: diphenhydrAMINE 25 MG CAP PO PRN (20:00)
[2024-05-13] MEDS ORDERED: guaiFENesin SYRUP 100MG/5ML 200 MG/10 ML CUP PO PRN (20:00)
[2024-05-13] MEDS: ACETAMINOPHEN TAB 325 MG TAB PO PRN (20:16)
[2024-05-13] MEDS: EZETIMIBE 10 MG TAB PO SCH (20:16)
[2024-05-13] MEDS: ATORVASTATIN 20 MG TAB PO SCH (20:17)
[2024-05-14] MEDS: LEVOTHYROXINE 50 MCG TAB PO SCH (08:39)
[2024-05-14] MEDS: DONEPEZIL 10 MG TAB PO SCH (08:39)
[2024-05-14] MEDS: FLUoxetine HCL 20 MG CAP PO SCH (08:39)
[2024-05-14] MEDS: ASPIRIN 81 MG PO SCH (08:39)
[2024-05-14 09:01] LABS: Basophils # (A) 0.04 X 10*3/uL (0.00-0.10); Basophils % (A) 0.6 %; Eosinophils # (A) 0.24 X 10*3/uL (0.04-0.35); Eosinophils % (A) 3.4 %; HCT 37.6 % (37.2-46.3); HGB 12.6 g/dL (12.0-15.0); Lymphocytes # (A) 1.52 X 10*3/uL (0.90-5.00); Lymphocytes % (A) 21.5 %; MCH 34.4 pg (27.0-32.0); MCHC 33.5 g/dL (32.0-37.0); MCV 102.7 FL (80.0-97.0); Mean Platelet Volume 10.5 FL (9.5-12.2); Monocytes # (A) 0.89 X 10*3/uL (0.20-1.00); Monocytes % (A) 12.6 %; NRBC Per 100 WBC 0 X 10*3/uL (0.00-0.01); Neutrophils # (A) 4.35 X 10*3/uL (1.80-7.70); Neutrophils % (A) 61.5 %; Platelet Count 239 X 10*3/uL (140-440); RBC 3.66 X 10*6/uL (4.10-5.20); RDW 12.9 % (11.5-14.5); WBC 7.07 X 10*3/uL (4.50-10.00)
[2024-05-14 09:11] LABS: Blood Urea Nitrogen 9.8 mg/dL (9.0-27.0); Calcium 8.7 mg/dL (8.7-10.3); Carbon Dioxide 25.9 mmol/L (21.6-31.8); Chloride 108 mmol/L (96-109); Glucose 96 mg/dL (70-110); Potassium 4.2 mmol/L (3.5-5.5); Sodium 141 mmol/L (135-145)
--- NOTE | 2024-05-14 10:01 | P.CRDCN ---
History of Present Illness Consult date: 05/14/24 Consult reason: chest pain History of present illness: This is an 83-year-old female patient follows at [place] [facility] with Dr. Cheek with past medical history of hypertension hyperlipidemia, hypothyroidism, memory loss. We have been asked to evaluate the patient for chest pain. Patient apparently developed chest pain and left arm discomfort on Tuesday morning. She was at rest reading the paper and was sitting down. She is not sure what seems to make it better or worse except that when she uses her left arm the pain in her left arm is worse. With deep breathing there is no change in her pain. There is no change in activity. She denies shortness of breath, no palpitations, no lower extremity edema. She states this is the first time she has had the pain and it lasted a little while. She does have a cough and cold symptoms and pain may be worse with coughing. She denies any fever. She is a non-smoker. She denies history of diabetes or emphysema. No ulcer or bleeding in her stools or urine. No history of stroke or seizures. She has noted to have a minimal tenderness to the chest wall. Blood pressure 144/79, he art rate 70, pulse ox 94% on room air. Son is at bedside and states that patient had a stress test done this summer and -EKG: Sinus rhythm with no acute ST changes. -Chest x-ray: Mild cardiomegaly with no acute process. -CT angiogram negative for pulmonary embolism. Incidental pulmonary nodules -Laboratory studies: WBC 7, hemoglobin 12.6, electrolytes are within normal limits. Creatinine 0.7. Troponin negative x 3. -Home cardiac medications: Aspirin 81 mg daily, Zetia 10 mg daily, nadolol 40 mg daily, Crestor 10 mg at bedtime, also on levothyroxine. Review Of Systems: At the time of my exam: CONSTITUTIONAL: Denies fever or chills. HEENT: Denies blurred vision, vision changes, or eye pain. Denies hemoptysis CARDIOVASCULAR: Reports chest pain. Denies orthopnea. Denies PND. Denies palp itations RESPIRATORY: Denies shortness of breath. GASTROINTESTINAL: Denies abdominal pain. Denies nausea or vomiting. HEMATOLOGIC: Denies bleeding disorders. GENITOURINARY: Denies any blood in urine. SKIN: Denies puritis. Denies rash. Physical examination: Gen: This is an 83-year-old female in no acute distress VS: reviewed HEENT: Head is atraumatic, normocephalic. Pupils equal, round. Sclerae is anicteric. NECK: Supple. No JVD. LUNGS: Clear to auscultation. No wheezes or rhonchi. No intercostal retractions. HEART: Regular rate and rhythm. No murmur. Minimal tenderness to chest wall. ABDOMEN: Soft No tenderness. EXTREMITIES: No pedal edema. No calf tenderness. NEUROLOGICAL: Patient is awake, alert and oriented x3. Assessment: Atypical chest pain, ACS ruled out Chest pain most likely due to cough and cold symptoms, musculoskeletal Hypertension Hyperlipidemia Hypothyroidism Memory loss Plan: Resume patient's home cardiac medications Obtain stress test report from her acute coordinator Obtain 2-D echocardiogram and Doppler study to assess cardiac structure and function Further recommendations to follow based upon clinical course At the time of discharge, patient will follow-up with her primary acute coordinator, Dr. Cheek. Thank you kindly for this consultation. Nurse practitioner note has been reviewed, I agree with documented findings and plan of care. Patient was seen and examined. Past Medical History Past Medical History: Cancer, Hyperlipidemia, Hypertension, Osteoarthritis (OA), Thyroid Disorder Additional Past Medical History / Comment(s): Hx skin cancer. History of Any Multi-Drug Resistant Organisms: None Reported Past Surgical History: Cholecystectomy, Hysterectomy, Orthopedic Surgery Additional Past Surgical History / Comment(s): cataract surgery, right shoulder surgery, hip surgery Past Anesthesia/Blood Transfusion Reactions: No Reported Reaction Past Psychological History: Anxiety Smoking Status: Former smoker Past Alcohol Use History: Occasional Additional Past Alcohol Use History / Comment(s): Quit smoking 40+ yrs ago. Past Drug Use History: None Reported - Past Family History Mother Family Medical History: Cancer Additional Family Medical History / Comment(s): Uterine cancer. Brother(s) Family Medical History: Cancer Medications and Allergies Home Medications Medication Instructions Recorded Confirmed Type Ezetimibe [Zetia] 10 mg PO HS 08/28/19 05/13/24 History FLUoxetine HCL [PROzac] 20 mg PO DAILY 08/28/19 05/13/24 History Rosuvastatin [Crestor] 10 mg PO HS 08/28/19 05/13/24 History nadoloL [Corgard] 40 mg PO DAILY 08/28/19 05/13/24 History Aspirin [Adult Low Dose Aspirin EC] 81 mg PO DAILY 06/30/22 05/13/24 History Donepezil [Aricept] 10 mg PO DAILY 05/13/24 05/13/24 History Levothyroxine Sodium [Synthroid] 50 mcg PO DAILY 05/13/24 05/13/24 History diphenhydrAMINE HCL [Benadryl] 25 mg PO DAILY PRN 05/13/24 05/13/24 History guaiFENesin SYRUP 100MG/5ML 200 mg PO Q6H PRN 05/13/24 05/13/24 History [Robitussin] Allergies Allergy/AdvReac Type Severity Reaction Status Date / Time Penicillins Allergy throat Verified 05/13/24 16:37 swelling, turned tongue black Physical Exam Vitals: Vital Signs Temp Pulse Pulse Resp BP BP Pulse Ox 05/14/24 02:00 98.1 F 66 16 125/71 95 05/13/24 20:23 98.9 F 73 16 126/53 97 05/13/24 20:00 98.5 F 69 18 145/76 98 05/13/24 19:20 73 18 147/75 98 05/13/24 17:38 68 18 169/75 98 05/13/24 17:13 68 18 189/85 98 05/13/24 13:28 65 05/13/24 12:31 98.0 F 65 18 139/65 97 Intake and Output 05/13/24 05/14/24 05/14/24 22:59 06:59 14:59 Intake Total 200 237 Balance 200 237 Intake: Oral 200 237 Other: Voiding Method Toilet # Voids 2 Weight 101.605 kg Results 05/14/24 05:44 05/14/24 05:44 Cardiac Enzymes 05/13/24 05/13/24 05/13/24 Range/Units 12:54 12:54 17:22 AST 34 (14-36) U/L Troponin I <0.012 <0.012 (0.000-0.034) ng/mL 05/13/24 Range/Units 21:00 AST (14-36) U/L Troponin I <0.012 (0.000-0.034) ng/mL Coagulation 05/13/24 Range/Units 15:02 PT 11.2 (10.0-12.5) sec APTT 24.7 (22.0-30.0) sec CBC 05/13/24 Range/Units 14:00 WBC 5.5 (3.8-10.6) k/uL RBC 4.05 (3.80-5.40) m/uL Hgb 13.6 (11.4-16.0) gm/dL Hct 40.6 (34.0-46.0) % Plt Count 47 L (150-450) k/uL Comprehensive Metabolic Panel 05/13/24 Range/Units 12:54 Sodium 139 (137-145) mmol/L Potassium 4.3 (3.5-5.1) mmol/L Chloride 109 H (98-107) mmol/L Carbon Dioxide 24 (22-30) mmol/L BUN 7 (7-17) mg/dL Creatinine 0.64 (0.52-1.04) mg/dL Glucose 100 H (74-99) mg/dL Calcium 9.2 (8.4-10.2) mg/dL AST 34 (14-36) U/L ALT 17 (4-34) U/L Alkaline Phosphatase 64 (38-126) U/L Total Protein 5.9 L (6.3-8.2) g/dL Albumin 3.2 L (3.5-5.0) g/dL Current Medications Generic Name Dose Route Start Last Admin Trade Name Freq PRN Reason Stop Dose Admin Acetaminophen 650 mg 05/13/24 20:02 05/13/24 20:16 Acetaminophen Tab 325 Mg Tab PO 650 mg Q6HR PRN Administration Fever and/ or Pain Aspirin 81 mg 05/14/24 09:00 Aspirin 81 Mg PO DAILY DEEP Atorvastatin Calcium 20 mg 05/13/24 21:00 05/13/24 20:17 Atorvastatin 20 Mg Tab PO 20 mg HS DEEP Administration Diphenhydramine HCl 25 mg 05/13/24 20:00 Diphenhydramine 25 Mg Cap PO DAILY PRN Cold Symptoms Donepezil HCl 10 mg 05/14/24 09:00 Donepezil 10 Mg Tab PO DAILY DEEP Ezetimibe 10 mg 05/13/24 21:00 05/13/24 20:16 Ezetimibe 10 Mg Tab PO 10 mg HS DEEP Administration Fluoxetine HCl 20 mg 05/14/24 09:00 Fluoxetine Hcl 20 Mg Cap PO DAILY DEEP Guaifenesin 200 mg 05/13/24 20:00 Guaifenesin Syrup 100mg/5ml 200 Mg/10 Ml Cup PO Q6H PRN Cough Levothyroxine Sodium 50 mcg 05/14/24 09:00 Levothyroxine 50 Mcg Tab PO DAILY DEEP Nadolol 40 mg 05/14/24 09:00 Nadolol 20 Mg Tab PO DAILY DEEP Naloxone HCl 0.2 mg 05/13/24 16:37 Naloxone 0.4 Mg/Ml 1 Ml Vial IV Q2M PRN Opioid Reversal Intake and Output 05/13/24 05/14/24 05/14/24 22:59 06:59 14:59 Intake Total 200 237 Balance 200 237 Intake: Oral 200 237 Other: Voiding Method Toilet # Voids 2 Weight 101.605 kg 05/13/24 14:00 05/13/24 12:54
[2024-05-14 13:00] VITALS: BP 137/67; PULSE 60; RESP 16; TEMP 98.3
--- NOTE | 2024-05-14 13:39 | CA ---
Transthoracic Echo Report Name: Pat Fabian Age: 83 Gender: F : 1940 Exam Date: 05/14/2024 11:53 Exam Location: [facility] Ht (in): 66 Wt (lb): 224 Ordering Physician: Charisse Borrero Attending/Referring Phys: [id number], Gissell Complaint Clerk Sunitha Martinez, TASH Procedure CPT: Indications: LVF Cardiac Hx: Technical Quality: Fair Contrast 1: Total Dose (mL): Contrast 2: Total Dose (mL): MEASUREMENTS (Male / Female) Normal Values 2D ECHO LV Diastolic Diameter PLAX 4.6 cm 4.2 - 5.9 / 3.9 - 5.3 cm LV Systolic Diameter PLAX 2.7 cm IVS Diastolic Thickness 1.2 cm 0.6 - 1.0 / 0.6 - 0.9 cm LVPW Diastolic Thickness 1.1 cm 0.6 - 1.0 / 0.6 - 0.9 cm LV Relative Wall Thickness 0.5 RV Internal Dim ED PLAX 1.5 cm LA Systolic Diameter LX 3.9 cm 3.0 - 4.0 / 2.7 - 3.8 cm LV Diastolic Volume MOD BP 55.7 cm??? 67 - 155 / 56 - 104 cm??? LV Systolic Volume MOD BP 20.3 cm??? 22 - 58 / 19 - 49 cm??? LV Ejection Fraction MOD BP 63.6 % >= 55 % LV Cardiac Index MOD BP 1310.6 cm???/min???m??? LV Diastolic Volume MOD 4C 58.5 cm??? LV Systolic Volume MOD 4C 17.0 cm??? LV Ejection Fraction MOD 4C 70.9 % LV Cardiac Index MOD 4C 1534.6 cm???/min???m??? LV Diastolic Length 4C 7.8 cm LV Systolic Length 4C 6.9 cm LV Diastolic Volume MOD 2C 53.8 cm??? LV Systolic Volume MOD 2C 22.1 cm??? LV Ejection Fraction MOD 2C 59.0 % LV Cardiac Index MOD 2C 1173.4 cm???/min???m??? LV Diastolic Length 2C 7.9 cm LV Systolic Length 2C 6.2 cm LA Volume 110.7 cm??? 18 - 58 / 22 - 52 cm??? LA Volume Index 49.9 cm???/m??? 16 - 28 cm???/m??? M-MODE Aortic Root Diameter MM 3.3 cm LA Systolic Diameter MM 4.1 cm LA Ao Ratio MM 1.2 AV Cusp Separation MM 2.0 cm DOPPLER AV Peak Velocity 164.2 cm/s AV Peak Gradient 10.8 mmHg MV Area PHT 2.1 cm??? Mitral E Point Velocity 81.0 cm/s Mitral A Point Velocity 82.2 cm/s Mitral E to A Ratio 1.0 MV Deceleration Time 365.5 ms TR Peak Velocity 280.7 cm/s TR Peak Gradient 31.5 mmHg Right Ventricular Systolic Press 41.1 mmHg FINDINGS Left Ventricle Left ventricular ejection fraction is estimated at 55-60 %. Normal left ventricular systolic function with no obvious regional wall motion abnormalities. Left ventricular cavity size normal.Mildly increased left ventricular wall thickness. Right Ventricle Normal right ventricular size and function. Mild pulmonary hypertension. Right Atrium Mild right atrial dilatation. Left Atrium Mildly increased left atrial diameter. Severely increased left atrial volume. Mildly increased left atrial area. Mitral Valve Structurally normal mitral valve. Mild mitral regurgitation. No mitral stenosis. Aortic Valve Trileaflet aortic valve. No aortic stenosis. No aortic regurgitation. Tricuspid Valve Structurally normal tricuspid valve. Mild tricuspid regurgitation. No tricuspid stenosis. Pulmonic Valve Structurally normal pulmonic valve. No pulmonic stenosis. Trace pulmonic regurgitation. Pericardium Prominent epicardial fat. Aorta Normal size aortic root and proximal ascending aorta. CONCLUSIONS 1. Normal left ventricular size and systolic function 2. Mild mitral and tricuspid regurgitation with mild pulmonary hypertension Previewed by: Dr. Elliott Underwood MD (Electronically Signed) Final Date: 14 May 2024 13:38
== END 2024-05-14 15:56 | disposition home or self-care (01) ==
LOC: EC 12:29 → 6NMEDSUR 16:38
PROVIDERS: ADMIT Family Medicine; ATTEND Family Medicine
DX: R07.89 Other chest pain (principal); J00 Acute nasopharyngitis [common cold]; R05.9 Cough, unspecified; E03.9 Hypothyroidism, unspecified; E11.10 Type 2 diabetes mellitus with ketoacidosis without coma; E78.5 Hyperlipidemia, unspecified; R41.3 Other amnesia; F10.20 Alcohol dependence, uncomplicated; F17.200 Nicotine dependence, unspecified, uncomplicated; I10 Essential (primary) hypertension; I25.10 Atherosclerotic heart disease of native coronary artery without angina pectoris; M19.90 Unspecified osteoarthritis, unspecified site; F41.9 Anxiety disorder, unspecified; Z79.890 Hormone replacement therapy; Z88.0 Allergy status to penicillin; Z79.82 Long term (current) use of aspirin; Z79.899 Other long term (current) drug therapy; Z85.828 Personal history of other malignant neoplasm of skin; R79.89 Other specified abnormal findings of blood chemistry; Z80.49 Family history of malignant neoplasm of other genital organs
CPT/HCPCS: 99285; 36415; 93005; 93306; 85379; 80053; 80048; 83690; 83735; 84484; 85025 ×2; 85610; 85730; 71046; 71275; G0378 ×2; Q9967

== ENCOUNTER → 2024-09-27 | Outpatient (CLI) | payer MEDICARE ==
--- NOTE | 2024-09-27 10:13 | CT ---
EXAMINATION TYPE: CT brain wo con DATE OF EXAM: 09/27/2024 COMPARISON: NONE CLINICAL INDICATION: Female, 84 years old with history of S06.0X0A, pain after fall today, bruising t o eyes TECHNIQUE: CT scan of the head is performed without contrast. CT DLP: 1162.8 mGycm. Automated Exposure Control for Dose Reduction was Utilized. FINDINGS: There is no acute intracranial hemorrhage or midline shift identified. There is mild-to-m oderate diffuse ventricular and sulcal prominence consistent with diffuse age-related cerebral atroph y with atrophy greatest over the bilateral frontal lobes. There is mild low-attenuation in the periv entricular white matter consistent with chronic small vessel ischemic change. The calvarium is intact . Bilateral aphakia is present. There is [id number] soft tissue swelling and hematoma right pre septal region. Intraconal fat is preserved bilaterally. The paranasal sinuses are grossly clear. IMPRESSION: No acute intracranial hemorrhage or midline shift [facility], , 09/27/2024 10:10 AM
== END | disposition home or self-care (01) ==
LOC: RADCTMAIN 09:30
PROVIDERS: ATTEND Family Medicine
DX: S06.0X0A Concussion without loss of consciousness, initial encounter (principal)
CPT/HCPCS: 70450